=== PATIENT | male | born 1995 | race Caucasian/White ===

== ENCOUNTER → 2020-10-25 01:15 | Outpatient (CLI) | payer OTHER, SELFPAY ==
[2020-10-25 17:52] LABS: SARS-CoV-2 RNA PCR Negative
== END ==
PROVIDERS: Visit Provider Otolaryngology
DX: Z01.812 Encounter for preprocedural laboratory examination (principal); Z20.822 Contact with and (suspected) exposure to COVID-19
CPT/HCPCS: C9803; U0003; U0005

== ENCOUNTER 2020-10-28 00:24 | Day surgery (SDC) | payer OTHER, SELFPAY ==
[2020-10-22 14:11] VITALS: BMI 40.6
--- NOTE | 2020-10-27 13:02 | PM.IMHP ---
H&P: HPI History of Present Illness Date/Time: 10/27/20 13:02 patient presents for planned surgical procedures. No change in medications medical history or symptoms. Chief Complaint: Septal deviation inferior turbinate hypertrophy nasal obstruction nasal congestion Review of Systems Constitutional: Constitutional: Denies fatigue, Denies fever(s) and Denies lethargy Eyes: Eyes: Denies blurry vision and Denies change in vision ENT: Reports as per HPI Cardiovascular: Cardiovascular: Denies chest pain Respiratory: Respiratory: Denies cough Endocrine: Endocrine: Denies fatigue Hematologic/Lymphatic: Hematologic/Lymphatic: Denies easy bleeding, Denies easy bruising and Denies lymphadenopathy Allergic/Immunologic: Allergic/Immunologic: Denies seasonal rhinorrhea [facility] Family History Family History Father Alcoholism Social History Social History Smoking packs per day: 1 Smoking cigarettes per day: 20.0 Years smoked: 2 Smoking pack-years: 2.00 Smoking status: Former smoker Tobacco type: cigarettes and smokeless tobacco Smokeless tobacco user: other Second hand tobacco smoke exposure: Yes (occasionally mom smokes around patient) Smoking end date: 10/14/20 Additional smoking assessment comments: Only uses smokeless tobacco products currently Alcohol intake: never Substance use: current Substance use type: marijuana Other substance usage details: daily Spiritual care concerns: No Meds Home Medications and Allergies Home Medications Medication Instructions Recorded Confirmed Type azelastine 137 mcg (0.1 %) nasal 1 spray INTRANASAL Q12H #30 ml 09/09/20 10/22/20 Rx spray aerosol fluticasone propionate 50 2 spray INTRANASAL BID #16 ml 09/09/20 10/22/20 Rx mcg/actuation nasal spray,suspension Allergies Allergy/AdvReac Type Severity Reaction Status Date / Time Sulfa (Sulfonamide Allergy Intermediate Hives Verified 10/22/20 14:07 Antibiotics) Exam Const: General: cooperative, healthy appearing, comfortable, well developed and alert HENMT: Head: normal to inspection, normocephalic and atraumatic Ears: hearing grossly normal bilaterally, external ears normal, TM's normal bilaterally and EAC's normal General nose exam: Normal external nose present, Normal nares present, mucous membranes and turbinates abnormal, abnormal septum and Other nasal findings present ( Septal deviation inferior turbinate hypertrophy) Face and sinus: normal facial exam Mouth: Yes Normal oral and palatal mucosa present, Yes lip normal, Yes tongue normal, Yes oropharynx normal and Yes moist mucous membranes Teeth and gingiva: dentition normal and gingiva normal Throat: posterior oropharynx normal, tonsils normal and uvula midline Eyes: General: appearance normal, both eyes and all related structures Periorbital: periorbital findings normal Eyelids: eyelids normal Conjunctivae: conjunctivae normal Sclera: sclerae normal Neck: Neck: normal visual inspection, full ROM and no lymphadenopathy Thyroid: thyroid normal Lymphatic: no lymphadenopathy noted Resp: Effort & Inspection: normal respiratory effort and able to speak in complete sentences Cardio: Jugular venous distension: no JVD Neuro: Cranial nerves: Yes CN's II-XII intact bilaterally Assessment and Plan Assessment and plan (1) Hypertrophy of both inferior nasal turbinates: Code(s): J34.3 - Hypertrophy of nasal turbinates Status: Acute Assessment and Plan: plan is for the OR for endoscopic assisted septoplasty inferior turbinate reduction with outfracture. Total operative time 1:00 hour. Risks were discussed including brain damage CSF leak blindness change in vision septal perforation need for further procedures and postoperative pain postoperative bleeding need for splints need for postoperative
[2020-10-28] VITALS (8 sets, daily range): BP systolic 97–161; BP diastolic 56–90; PULSE 74–98; RESP 11–16; TEMP 36.4–36.7; O2SAT 92–99
--- NOTE | 2020-10-28 07:09 | WPDHPUPDATE1 ---
History and Physical Update Update Date/Time: 10/28/20 07:09 History and Physical has been reviewed, including an updated exam of the patient. There are NO changes in the patient's condition. Risks, benefits, and alternatives have been discussed and questions answered. Patient agrees to proceed with procedure.
[2020-10-28] MEDS: LACTATED RINGERS 1,000 ML 30 ML IV CONT ×2 (08:05→11:15)
[2020-10-28] MEDS: ACETAMINOPHEN 500 MG TABLET 1000 MG PO (08:09)
--- NOTE | 2020-10-28 09:06 | WPDANESEPPF ---
Anes - Initial Pre Proc Eval Procedure: Operation Date: 10/28/20 09:45 Proposed Procedures p Endoscopic Septoplasty, - Wesley Olmstead MD s Bilateral Inferior Turbinectomy - Wesley Olmstead MD Date/Time: 10/28/20 09:06 Surgeon: Wesley Olmstead MD Pre Op Diagnosis: septal deviation, turbinate hypertrophy Patient Data Age: 25 Gender: M Height: 1.83 m Weight: 139.7 kg Last Vital Signs Temp 36.4 C L 10/28/20 08:30 Pulse 77 10/28/20 08:30 Resp 16 10/28/20 08:30 BP 151/90 H 10/28/20 08:30 Pulse Ox 99 10/28/20 08:30 Allergies Allergy/AdvReac Type Severity Reaction Status Date / Time Sulfa (Sulfonamide Allergy Intermediate Hives Verified 10/28/20 08:28 Antibiotics) Home Medications Medication Instructions Recorded Confirmed Type azelastine 137 mcg (0.1 %) nasal 1 spray INTRANASAL Q12H #30 ml 09/09/20 10/28/20 Rx spray aerosol fluticasone propionate 50 2 spray INTRANASAL BID #16 ml 09/09/20 10/28/20 Rx mcg/actuation nasal spray,suspension Patient hx anesthesia problems: none Family hx anesthesia problems: none PMFSH Past Medical History Medical History (Updated 10/28/20 @ 09:07 by Slade Marrero MD) Morbid obesity Surgical History Surgical History (Updated 10/28/20 @ 09:07 by Slade Marrero MD) H/O hernia repair Family History Family History Father Alcoholism Social History Social History Smoking packs per day: 1 Smoking cigarettes per day: 20.0 Years smoked: 2 Smoking pack-years: 2.00 Smoking status: Former smoker Tobacco type: cigarettes and smokeless tobacco Smokeless tobacco user: other Second hand tobacco smoke exposure: Yes (occasionally mom smokes around patient) Smoking end date: 10/14/20 Additional smoking assessment comments: Only uses smokeless tobacco products currently Alcohol intake: never Substance use: current Substance use type: marijuana Other substance usage details: daily Living arrangements: with family Spiritual care concerns: No Anes - Eval Final PreProcedure Day of Procedure 10/28/20 09:06 Patient weight: morbidly obese Heart: regular rate and rhythm Lungs: clear to auscultation Airway: Mallampati scale class II Neurological: alert and oriented Last oral intake: >/= 8 hours ASA classification: III Emergent: no Anesthetic plan: proceed Anesthesia type and monitoring: general ETT and standard monitoring Informed Consent: The patient's anesthetic plan and its attendant risks and benefits were discussed with the patient/family/POA. Questions were solicited and answers provided to the satisfaction of the patient/family/POA.
[2020-10-28] MEDS: ceFAZolin 3 GM/D5W 100 ML 100 ML IVPB (09:50)
[2020-10-28] MEDS: LIDO 1%/EPINEPHRINE/PF 1:200,000 30 ML VIAL XX (10:13)
[2020-10-28] MEDS: OXYMETAZOLINE HCL 0.05% NAS 15 ML BTL (*BKC) 1 SPRAY NASAL (10:14)
[2020-10-28] MEDS: fentaNYL CITRATE INJ (*CRX) 100 MCG/2 ML VIAL 25 MCG IV PUSH ×8 (11:27→12:40)
--- NOTE | 2020-10-28 11:49 | W.PM.PROC2 ---
Procedure Note - Detailed Date of Procedure 10/28/20 Pre-op Diagnosis septal deviation, turbinate hypertrophy Post-op Diagnosis same Procedure Performed 1. Endoscopic assisted septoplasty 2. Submucosal resection bilateral inferior turbinates with outfracture Surgeon Wesley Olmstead MD Lens Grinder none Indications see above Findings Leftward deviated septum, bilateral inferior turbinate hypertrophy Description of Procedure the patient was correctly identified and consent was verified in the preoperative holding area. The patient was then brought to the operating room and a time-out was performed. General anesthesia was induced and endotracheal tube was secured the patient's airway and taped to the left lower lip. Afrin-soaked pledgets were placed and allowed to sit for 5 minutes and then removed. The patient was then prepped and draped for the aforementioned procedures. The 0 degree endoscope was utilized to perform the entire procedure. 15 cc of 1% lidocaine with 1 100,000 parts epinephrine was injected in the sub mucosal plane on the bilateral nasal septum as well as anterior portions of the inferior turbinates. Fifteen blade was utilized to perform [place] type incision on the anterior left nasal septum. A 7 Indonesian suction was utilized to dissect a mucoperichondrial flap on the left. Caudal was then utilized to cross to the right side. Right-sided mucoperichondrial flap was then elevated. Deviated nasal septum was removed with combination of endoscopic scissors Jeff Krishnan forceps and Mandi forceps as well as osteotome. The septum was very straight following the procedure. This was closed with 3 interrupted 5 0 fast gut sutures anteriorly on the left. The left inferior turbinate was then entered anteriorly and debrided in the submucosal plane using microdebrider with 2 mm inferior turbinate blade. It was then outfractured using a Mobile elevator. Redundant mulberry tip was then debrided with microdebrider and cauterized with suction Bovie electrocautery at a setting of 15 the exact same procedure was performed on the right inferior turbinate. Bleeding was minimal and hemostasis without excellent following the procedure. Vazquez splints were then placed after the nasal passages were suctioned bilaterally, the Vazquez splints were then sutured anteriorly using a 3-0 nylon suture. Patient was cleaned. Total blood loss approximately 5 cc. I performed all dictated portions of the procedure. Care the patient was turned over to Anesthesiology. There were no immediate complications. Implants Vazquez splints Estimated Blood Loss 5 Drains No Packing No Complications No immediate complications Condition stable Disposition PACU
[2020-10-28] MEDS: oxyCODONE HCL (*CRX) 5 MG TAB IR PO (12:30)
== END 2020-10-28 13:10 | disposition home or self-care (01) ==
PROVIDERS: Visit Provider Otolaryngology
PROC: (CPT 30520; principal; 2020-10-28 09:45)
PROC: (CPT 30140; 2020-10-28 09:45)
DX: J34.2 Deviated nasal septum (principal); J34.3 Hypertrophy of nasal turbinates; F12.90 Cannabis use, unspecified, uncomplicated; F17.220 Nicotine dependence, chewing tobacco, uncomplicated; E66.01 Morbid (severe) obesity due to excess calories; Z68.41 Body mass index [BMI] 40.0-44.9, adult
CPT/HCPCS: 30140; 30520; A9270; J0330; J0690; J1100; J2250; J2405; J2704; J3010; J7120

== ENCOUNTER 2021-02-24 12:31 | Emergency (ER) | payer OTHER, SELFPAY ==
[2021-02-24 13:23] VITALS: BP 150/86; PULSE 85; RESP 16; TEMP 36; O2SAT 98
--- NOTE | 2021-02-24 14:07 | ED.URI ---
HPI - URI/Sore Throat General Chief Complaint: Upper Respiratory Infection Stated Complaint: CONGESTION Time Seen by Provider: 02/24/21 14:08 Source: patient and RN notes reviewed Mode of arrival: ambulatory Limitations: no limitations History of Present Illness HPI Narrative: 25-year-old male with history of asthma presents with concern for 6-day history of wheezing, cough, chest congestion. He reports a feeling of not being able to take a full breath. Reports he has not had an albuterol inhaler for more than a year, he usually needs it when he is sick. He reports he gets tested weekly at work for Covid, he had a negative test last week and was tested again yesterday. He denies any known Covid exposure. He denies body aches, chills, sweats, fever. MD elicited complaint: cough and sore throat Related Data Allergies Allergy/AdvReac Type Severity Reaction Status Date / Time Sulfa (Sulfonamide Allergy Intermediate Hives Verified 11/18/20 13:10 Antibiotics) Review of Systems Review of Systems: CONSTITUTIONAL: Denies malaise, chills, sweats, or fever. EYES: Denies visual changes, redness, or discharge. ENT: Reports rhinorrhea, congestion. Sinus pain, otalgia and sore throat. CARDIOVASCULAR: Denies chest pain, palpitations, or edema. RESPIRATORY: Reports cough, chest congestion. Denies dyspnea. GASTROINTESTINAL: Denies abdominal pain, nausea, vomiting, diarrhea SKIN: Denies rash or itching. MUSCULOSKELETAL: Denies myalgia. NEUROLOGIC: Denies headache. All systems reviewed & are unremarkable except as noted in HPI and below PMFSH Past Medical History Medical History Morbid obesity Surgical History Surgical History H/O hernia repair Family History Family History Father Alcoholism Social History Social History Smoking packs per day: 1 Smoking cigarettes per day: 20.0 Years smoked: 2 Smoking pack-years: 2.00 Smoking status: Former smoker Tobacco type: cigarettes and smokeless tobacco Smokeless tobacco user: other Second hand tobacco smoke exposure: Yes (occasionally mom smokes around patient) Smoking end date: 10/14/20 Additional smoking assessment comments: Only uses smokeless tobacco products currently Alcohol intake: never Substance use: current Substance use type: marijuana Other substance usage details: daily Spiritual care concerns: No Comments At time of signature, agree with nursing past medical, surgical, social and family history. There is no relevant family history pertinent to the presenting complaint Exam Narrative: GENERAL: Well-appearing, well-nourished, and in no acute distress. HEAD: Normocephalic EYES: PERRLA, conjunctivae clear ENT: Nares clear, turbinates edematous and erythematous, clear discharge. Mucous membranes moist. TM pearly palmer with dull light reflex bilaterally; no tragal tenderness. Oropharynx not erythematous without lesions. Tonsils not enlarged and without exudate, no drooling, no hoarseness, no trismus, uvula midline. NECK: Supple. No lymphadenopathy CHEST: Clear to auscultation, breath sounds equal. No wheezing, rhonchi, rales, or stridor. No respiratory distress, speaks in full sentences. HEART: Regular rate and rhythm. No murmur heard. SKIN: Warm, dry, no rash. NEURO: Alert and oriented x3. PSYCH: Normal mood and affect Course Course Emergency Course: Patient is aware of diagnosis, understands and agrees to treatment plan. Anticipatory guidance given. Patient agrees to follow-up as directed and is aware of reasons to seek care at the emergency department. Portions of this record may have been created with voice recognition software Vital Signs Vital signs: Vital Signs Temperature 96.8 F L 02/24/21 13:23 Pulse Rate 85 02/24/21 13:23
== END 2021-02-24 14:17 | disposition home or self-care (01) ==
PROVIDERS: Emergency Provider Nurse Practitioner
DX: J06.9 Acute upper respiratory infection, unspecified (principal); J45.909 Unspecified asthma, uncomplicated; Z87.891 Personal history of nicotine dependence
CPT/HCPCS: 99213; G0463

== ENCOUNTER 2021-04-09 12:14 | Emergency (ER) | payer OTHER, SELFPAY ==
--- NOTE | 2021-04-09 12:19 | ED.URI ---
HPI - URI/Sore Throat General Chief Complaint: Shortness of Breath/Dyspnea Stated Complaint: Shortness of Breath Time Seen by Provider: 04/09/21 12:19 Source: patient and RN notes reviewed Mode of arrival: ambulatory Limitations: no limitations History of Present Illness HPI Narrative: 25-year-old male presents to the [facility] with complaints of shortness of breath since yesterday. Has a history of asthma. Went to [facility] and was tested for Covid 2 hours ago. Patient is afebrile. Nontoxic in appearance. Related Data Allergies Allergy/AdvReac Type Severity Reaction Status Date / Time Sulfa (Sulfonamide Allergy Intermediate Hives Verified 04/09/21 12:28 Antibiotics) Review of Systems Review of Systems: All systems reviewed & are unremarkable except as noted in HPI and below Constitutional: Constitutional: Reports no additional constitutional complaints, Denies chills, Denies fever(s) and Denies headache(s) Eyes: Eyes: Reports no additional eye complaints ENT: Reports as per HPI, Denies vertigo, Denies dizziness, Denies headache(s), Denies nasal congestion and Denies sore throat Cardiovascular: Cardiovascular: Reports no additional cardiovascular complaints, Denies chest pain, Denies syncope, Denies rapid heart rate and Denies dyspnea Respiratory: Respiratory: Reports as per HPI, Reports cough, Reports dyspnea and Denies wheezing Gastrointestinal: Gastrointestinal: Reports no additional gastrointestinal complaints, Denies abdominal pain, Denies diarrhea, Denies nausea and Denies vomiting Musculoskeletal: Musculoskeletal: Reports no additional musculoskeletal complaints and Denies numbness Integumentary/Breasts: Skin/Breast: Reports system reviewed and no additional complaints, except as docu Neurologic: Reports system reviewed and no additional complaints, except as documented, Denies vertigo, Denies dizziness, Denies syncope, Denies headache(s), Denies focal weakness and Denies numbness Psychiatric: Psychiatric: Reports no additional psychiatric complaints Allergic/Immunologic: Allergic/Immunologic: Reports no additional allergic/immunologic complaints and Denies wheezing PMFSH Past Medical History Medical History Morbid obesity Surgical History Surgical History H/O hernia repair Family History Family History Father Alcoholism Social History Social History Smoking packs per day: 1 Smoking cigarettes per day: 20.0 Years smoked: 2 Smoking pack-years: 2.00 Smoking status: Former smoker Tobacco type: cigarettes and smokeless tobacco Smokeless tobacco user: other Second hand tobacco smoke exposure: Yes (occasionally mom smokes around patient) Smoking end date: 10/14/20 Additional smoking assessment comments: Only uses smokeless tobacco products currently Alcohol intake: never Substance use: current Substance use type: marijuana Other substance usage details: daily Spiritual care concerns: No Comments At the time of my signature, I reviewed and agree with the nursing past medical, surgical, social, and family history. There is no relevant family history pertinent to the patient complaint. Exam Const: General: cooperative, healthy appearing, no acute distress, well developed and alert Nutritional Appearance: well nourished and obese Orientation/consciousness: patient oriented x3 Limitations: no limitations HENMT: Head: normal to inspection Ears: external ears normal, TM's normal bilaterally and EAC's normal Eyes: Conjunctivae: conjunctivae normal Pupils: Equal, round and reactive pupils present Neck: Neck: normal visual inspection, no lymphadenopathy and no meningeal signs Chest: Chest palpation & inspection: normal inspection of the chest Resp: Effort & Inspec
[2021-04-09 12:24] VITALS: BP 138/82; PULSE 91; RESP 18; TEMP 36.5; O2SAT 98
== END 2021-04-09 12:39 | disposition home or self-care (01) ==
PROVIDERS: Emergency Provider Nurse Practitioner
DX: J45.909 Unspecified asthma, uncomplicated (principal); F17.290 Nicotine dependence, other tobacco product, uncomplicated; E66.01 Morbid (severe) obesity due to excess calories; Z68.41 Body mass index [BMI] 40.0-44.9, adult
CPT/HCPCS: 99213; G0463

== ENCOUNTER 2021-07-01 16:21 | Emergency (ER) | payer OTHER, SELFPAY ==
[2021-07-01 16:29] VITALS: BP 139/80; PULSE 80; RESP 16; TEMP 36.4; O2SAT 99
[2021-07-01 16:32] VITALS: BP 139/80; PULSE 80; RESP 16; TEMP 36.4; O2SAT 99
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
== END 2021-07-01 17:02 | disposition home or self-care (01) ==
PROVIDERS: Emergency Provider Nurse Practitioner Family
DX: T22.111A Burn of first degree of right forearm, initial encounter (principal); X15.0XXA Contact with hot stove (kitchen), initial encounter; Y93.G3 Activity, cooking and baking; F17.290 Nicotine dependence, other tobacco product, uncomplicated; F12.90 Cannabis use, unspecified, uncomplicated; E66.01 Morbid (severe) obesity due to excess calories; Z68.41 Body mass index [BMI] 40.0-44.9, adult
CPT/HCPCS: 99213; G0463

== ENCOUNTER 2021-12-19 09:28 | Emergency (ER) | payer OTHER, SELFPAY ==
[2021-12-19 09:38] VITALS: BP 140/92; PULSE 81; RESP 16; O2SAT 100
--- NOTE | 2021-12-19 09:46 | ED.URI ---
HPI - URI/Sore Throat General Chief Complaint: Upper Respiratory Infection Stated Complaint: uri Time Seen by Provider: 12/19/21 09:46 Source: patient and RN notes reviewed Mode of arrival: ambulatory Limitations: no limitations History of Present Illness HPI Narrative: 46 female present for complaint of sinus pressure, congestion, and both ears feel muffled for about 5 days. Endorses left ear pain, and states nasal drainage is green in color. He states this is worsening his asthma and is requesting albuterol inhaler refill. He has been taking NyQuil and Benadryl for symptoms. He is not vaccinated for flu. Denies chest pain, shortness of breath, wheezing, vomiting, fever or chills. Took negative Covid test at home today. MD elicited complaint: cough Related Data Allergies Allergy/AdvReac Type Severity Reaction Status Date / Time Sulfa (Sulfonamide Allergy Intermediate Hives Verified 12/19/21 09:35 Antibiotics) Review of Systems Review of Systems: CONSTITUTIONAL: denies malaise, denies chills, sweats, fever EYES: Denies visual changes, redness, or discharge ENT: Reports rhinorrhea, congestion ,denies sinus pain, otalgia CARDIOVASCULAR: Denies chest pain, palpitations, edema RESPIRATORY: Reports cough, post nasal drainage. Denies dyspnea GASTROINTESTINAL: Denies abdominal pain, nausea, vomiting, diarrhea MUSCULOSKELETAL: denies myalgia NEUROLOGIC: Denies headache PMFSH Past Medical History Medical History Morbid obesity Surgical History Surgical History H/O hernia repair Family History Family History Father Alcoholism Social History Social History Smoking packs per day: 1 Smoking cigarettes per day: 20.0 Years smoked: 2 Smoking pack-years: 2.00 Smoking status: Former smoker Tobacco type: cigarettes and smokeless tobacco Smokeless tobacco user: other Second hand tobacco smoke exposure: Yes (occasionally mom smokes around patient) Smoking end date: 10/14/20 Additional smoking assessment comments: Only uses smokeless tobacco products currently Alcohol intake: never Substance use: current Substance use type: marijuana Other substance usage details: daily Spiritual care concerns: No Exam Narrative: GENERAL: well-appearing EYES: PERRLA, conjunctivae clear ENT: Mucous membranes moist. Right TM pearly palmer with dull light reflex; Left TM erythematous, bulging with red canal; no tragal tenderness. Oropharynx erythematous without lesions or exudate, no drooling, no hoarseness, no trismus, uvula midline. NECK: Supple. No lymphadenopathy CHEST: Clear to auscultation, breath sounds equal. No wheezing, rhonchi, rales, or stridor. No respiratory distress, speaks in full sentences. HEART: Regular rate and rhythm. No murmur heard. SKIN: Warm, dry, no rash. NEURO: Alert and oriented x3. Course Course Emergency Course: Patient is aware of diagnosis, understands and agrees to treatment plan. Anticipatory guidance given. Patient agrees to follow-up as directed and is aware of reasons to seek care at the emergency department. Portions of this record may have been created with voice recognition software Level of Care: Express Care Visit Vital Signs Vital signs: Vital Signs Pulse Rate 81 12/19/21 09:38 Respiratory Rate 16 12/19/21 09:38 Blood Pressure 140/92 H 12/19/21 09:38 Pulse Oximetry 100 12/19/21 09:38 Oxygen Delivery Room Air 12/19/21 09:38 Pulse Rate 81 12/19/21 09:38 Respiratory Rate 16 12/19/21 09:38 Blood Pressure 140/92 H 12/19/21 09:38 Pulse Oximetry 100 12/19/21 09:38 Oxygen Delivery Room Air 12/19/21 09:38 reviewed MDM - URI/Sore Throat MDM Narrative Medical decision making narrative: Advised suppo
== END 2021-12-19 10:06 | disposition home or self-care (01) ==
PROVIDERS: Emergency Provider Nurse Practitioner Family
DX: H66.002 Acute suppurative otitis media without spontaneous rupture of ear drum, left ear (principal); Z87.891 Personal history of nicotine dependence; E66.01 Morbid (severe) obesity due to excess calories; Z68.35 Body mass index [BMI] 35.0-35.9, adult
CPT/HCPCS: 99213; G0463

== ENCOUNTER 2022-05-23 18:21 | Emergency (ER) | payer OTHER, SELFPAY ==
--- NOTE | 2022-05-23 18:27 | ED.URI ---
HPI - URI/Sore Throat General Chief Complaint: Upper Respiratory Infection Stated Complaint: sob Time Seen by Provider: 05/23/22 18:27 Source: patient Mode of arrival: ambulatory Limitations: no limitations History of Present Illness HPI Narrative: 26-year-old male with history of asthma presents with complaint of shortness of breath with exertion, chest tightness when trying to take a deep breath. Using inhaler and reports not helping. Patient had COVID 2 weeks ago. States all symptoms resolved other than the cough. Thinks that COVID is exacerbating his asthma. Is concerned that he may need prednisone. Patient alert and talkative. no respiratory distress noted. All systems reviewed and negative except as noted above. Related Data Home Medications Medication Instructions Recorded Confirmed albuterol sulfate 90 mcg/actuation inhalation 05/23/22 aerosol inhaler Allergies Allergy/AdvReac Type Severity Reaction Status Date / Time Sulfa (Sulfonamide Allergy Intermediate Hives Verified 05/23/22 18:24 Antibiotics) Review of Systems Review of Systems: CONSTITUTIONAL: Denies fever, chills, or sweats. EYES: Denies visual changes, redness, or discharge. ENT: Denies rhinorrhea, congestion, sore throat, or otalgia. CARDIOVASCULAR: Denies chest pain, palpitations, or edema. RESPIRATORY: Reports cough and dyspnea on exertion. GASTROINTESTINAL: Denies abdominal pain, nausea, vomiting, or diarrhea. GENITOURINARY: Denies dysuria or hematuria. SKIN: Denies rash or itching. MUSCULOSKELETAL: Denies back pain, joint pain, or myalgia. NEUROLOGIC: Denies headache, numbness, or weakness. PSYCHIATRIC: Denies anxiety or depression. All other systems reviewed are negative, except as documented in HPI. [facility] Past Medical History Medical History Morbid obesity Surgical History Surgical History H/O hernia repair Family History Family History Father Alcoholism Social History Social History Smoking packs per day: 1 Smoking cigarettes per day: 20.0 Years smoked: 2 Smoking pack-years: 2.00 Smoking status: Former smoker Tobacco type: cigarettes and smokeless tobacco Smokeless tobacco user: other Second hand tobacco smoke exposure: Yes (occasionally mom smokes around patient) Smoking end date: 10/14/20 Additional smoking assessment comments: Only uses smokeless tobacco products currently Alcohol intake: never Substance use: current Substance use type: marijuana Other substance usage details: daily Living arrangements: with family Spiritual care concerns: No Comments At time of signature, agree with nursing past medical, surgical, social and family history. There is no relevant family history pertinent to the presenting complaint. Exam Narrative: GENERAL: This is a well-nourished, well-developed patient, in no apparent distress. HEAD: normocephalic, atraumatic. EYES: PERRL. Sclera clear/white. Vision is grossly intact. EARS: External ears normal, auditory canals clear and without drainage, TMs normal without perforation. Hearing grossly intact. NOSE: External nose normal with no obvious nasal discharge, nares without redness, no rhinorrhea. THROAT: Mucous membranes moist, posterior pharynx clear. NECK: Neck supple, non-tender without lymphadenopathy, masses or thyromegaly. CARDIOVASCULAR: Regular rate and rhythm without murmurs, gallops, or rubs. RESPIRATORY: expiratory wheezing throughout all lung espinoza. SKIN: warm, Dry, intact with no suspicious lesions or rash, good texture and turgor. NEURO: awake, alert, and oriented to person, place and time. There were no obvious focal neurologic abnormalities. EXTREMITIES: No joint tenderness, effusion, or edema noted.
[2022-05-23 18:28] VITALS: BP 144/92; PULSE 95; RESP 16; TEMP 36.8; O2SAT 98
[2022-05-23] MEDS: predniSONE 20 MG TABLET 40 MG PO (18:45)
[2022-05-23] MEDS: ALBUTEROL SULFATE NEB 2.5 MG/3 ML INH INHALATION (18:46)
[2022-05-23] MEDS: IPRATROPIUM BR 0.02% INH SOLN 0.5 MG/2.5 ML VIAL INHALATION (18:46)
== END 2022-05-23 19:15 | disposition home or self-care (01) ==
PROVIDERS: Emergency Provider Nurse Practitioner Family
DX: J45.901 Unspecified asthma with (acute) exacerbation (principal); Z87.891 Personal history of nicotine dependence
CPT/HCPCS: 94640; 99213; G0463; J7512

== ENCOUNTER 2022-06-03 15:02 | Emergency (ER) | payer OTHER, SELFPAY ==
--- NOTE | 2022-06-03 15:29 | PC.NURSE ---
pt to intake desk and states he does not want to wait long and is going to a different hospital. pt ambulated out of ED doors.
== END 2022-06-03 16:50 | disposition left against medical advice (07) ==
LOC: ANHED 15:40
DX: Z53.21 Procedure and treatment not carried out due to patient leaving prior to being seen by health care provider (principal)
CPT/HCPCS: 99199

== ENCOUNTER 2022-06-10 07:30 | Emergency (ER) | payer OTHER, SELFPAY ==
--- NOTE | ~2022-06-10 | XR_ITS ---
Clinical Indication: Shortness of breath PA and lateral views of the chest: Comparison: 01/03/2019 Findings: The lungs are clear, without evidence of focal consolidation or pleural effusion. Cardiome diastinal silhouette is within normal limits. Bones and soft tissues are unremarkable. Impression: Normal chest. Reviewed, dictated and finalized at [facility]. Impression: Normal chest.
[2022-06-10 07:34] VITALS: BP 172/92; PULSE 100; RESP 18; TEMP 37; O2SAT 95
[2022-06-10] MEDS: IPRATROPIUM BR 0.02% INH SOLN 0.5 MG/2.5 ML VIAL INHALATION (07:51)
[2022-06-10 07:52] VITALS: PULSE 95; RESP 16
[2022-06-10 08:04] VITALS: PULSE 110; RESP 16
--- NOTE | 2022-06-10 08:43 | ED.ASTHMA ---
HPI - Asthma General Chief Complaint: Asthma Stated Complaint: trouble breathing Time Seen by Provider: 06/10/22 07:37 History of Present Illness HPI Narrative: Patient is a 26-year-old male who presents ER with shortness of breath. Worsening over last couple days. Was diagnosed with COVID a couple weeks ago. Has been having breathing difficulty since then. She does not currently have an albuterol inhaler. 2 weeks ago he was on 5 days of prednisone with only mild improvement. No fevers or chills or sweats. Reports his doctor wanted chest x-ray actually does not have pneumonia. Patient feels some tightness in the back but no chest pain. No fevers or chills or sweats. Related Data Allergies Allergy/AdvReac Type Severity Reaction Status Date / Time Sulfa (Sulfonamide Allergy Intermediate Hives Verified 06/10/22 07:37 Antibiotics) Review of Systems Constitutional: Constitutional: Denies chills, Denies fatigue and Denies fever(s) ENT: Denies nasal congestion and Denies sore throat Cardiovascular: Cardiovascular: Denies chest pain, Denies rapid heart rate and Denies radiating jaw, neck or arm pain Respiratory: Respiratory: Reports cough, Reports dyspnea and Reports wheezing Gastrointestinal: Gastrointestinal: Denies abdominal pain, Denies nausea and Denies vomiting PMF Past Medical History Medical History (Updated 06/10/22 @ 08:49 by Jaylan Lewis MD) Anxiety Asthma Morbid obesity Nasal septal deviation Surgical History Surgical History H/O hernia repair Family History Family History Father Alcoholism Social History Social History Smoking packs per day: 1 Smoking cigarettes per day: 20.0 Years smoked: 2 Smoking pack-years: 2.00 Smoking status: Former smoker Tobacco type: cigarettes and smokeless tobacco Smokeless tobacco user: other Second hand tobacco smoke exposure: Yes (occasionally mom smokes around patient) Smoking end date: 10/14/20 Additional smoking assessment comments: Only uses smokeless tobacco products currently Alcohol intake: never Substance use: current Substance use type: marijuana Other substance usage details: daily Living arrangements: with family Spiritual care concerns: No Exam Narrative: GENERAL: Well-appearing, well-nourished, and in no acute distress. HEAD: Normocephalic, atraumatic. ENT: Mucous membranes moist. CHEST: Faint wheezing bilateral mid and lower lung zones. No respiratory distress. HEART: Regular rate and rhythm. Normal peripheral pulses. EXTREMITIES: Normal range of motion. No edema. NEURO: Alert and oriented x3. PSYCH: Normal mood and affect. Course Course Emergency Course: Wheezing resolved after nebulizer treatment. X-ray without pneumonia. Discharged with steroids and albuterol. Patient agreeable with plan. Vital Signs Vital signs: Vital Signs Temperature 98.6 F 06/10/22 07:34 Pulse Rate 100 06/10/22 07:34 Respiratory Rate 18 06/10/22 07:34 Blood Pressure 172/92 H 06/10/22 07:34 Pulse Oximetry 95 06/10/22 07:34 Temperature 98.6 F 06/10/22 07:34 Pulse Rate 110 H 06/10/22 08:04 Respiratory Rate 16 06/10/22 08:04 Blood Pressure 172/92 H 06/10/22 07:34 Pulse Oximetry 95 06/10/22 07:34 MDM - Asthma Imaging Data Radiologist's impression: ITS Impressions Chest X-Ray 06/10/22 08:34 Impression: Normal chest. Discharge Plan Discharge Clinical Impression: Asthma exacerbation Patient Disposition: Home, Self-Care Condition: Stable Instructions: Asthma (ED) Additional Instructions: Return the ER if you have worsening shortness of breath, you cannot keep down food or water, you lose consciousness, you have additional concerns. Prescriptions: New prednisone 5
[2022-06-10 08:50] VITALS: O2SAT 99
[2022-06-10 08:55] VITALS: BP 168/77; PULSE 80; RESP 16; O2SAT 100
== END 2022-06-10 08:56 | disposition home or self-care (01) ==
PROVIDERS: Emergency Provider Emergency Medicine; PCP Emergency Medicine
DX: J45.901 Unspecified asthma with (acute) exacerbation (principal); E66.01 Morbid (severe) obesity due to excess calories; Z68.41 Body mass index [BMI] 40.0-44.9, adult; Z86.16 Personal history of COVID-19; Z87.891 Personal history of nicotine dependence
CPT/HCPCS: 71046; 94640; 99283

== ENCOUNTER 2023-02-08 14:26 | Emergency (ER) | payer OTHER, SELFPAY ==
[2023-02-08 14:38] VITALS: BP 142/90; PULSE 91; RESP 16; TEMP 37.1; O2SAT 97
--- NOTE | 2023-02-08 14:39 | ED.URI ---
HPI - URI/Sore Throat General Chief Complaint: Upper Respiratory Infection Stated Complaint: wheezing Time Seen by Provider: 02/08/23 15:00 Source: patient and RN notes reviewed Mode of arrival: ambulatory Limitations: no limitations History of Present Illness HPI Narrative: 27-year-old male presents concern for cough and wheezing for 1 week. Reports he started having a cold 1 week ago and he continues to have a cough with wheezing. He reports he takes a daily controller inhaler which he is almost out of and he uses his albuterol without relief. He requests refills on his controller medicine and albuterol. MD elicited complaint: cough Related Data Home Medications Medication Instructions Recorded Confirmed albuterol sulfate 90 mcg/actuation See Rx Instructions .Route .COMPLEX 02/08/23 02/08/23 aerosol inhaler budesonide-formoterol HFA 80 1 inh inhalation ONCE 02/08/23 02/08/23 mcg-4.5 mcg/actuation aerosol inhaler (Symbicort) Allergies Allergy/AdvReac Type Severity Reaction Status Date / Time Sulfa (Sulfonamide Allergy Intermediate Hives Verified 02/08/23 14:36 Antibiotics) Review of Systems Review of Systems: CONSTITUTIONAL: Denies malaise, chills, sweats, or fever. EYES: Denies visual changes, redness, or discharge. ENT: Denies rhinorrhea, congestion, sinus pain, otalgia and sore throat. CARDIOVASCULAR: Denies chest pain, palpitations, or edema. RESPIRATORY: Reports cough, wheezing, dyspnea. GASTROINTESTINAL: Denies abdominal pain, nausea, vomiting, diarrhea SKIN: Denies rash or itching. MUSCULOSKELETAL: Denies myalgia. NEUROLOGIC: Denies headache. All systems reviewed & are unremarkable except as noted in HPI and below PMFSH Past Medical History Medical History (Updated 02/08/23 @ 15:09 by Supriya Nunez NP) Anxiety Asthma Morbid obesity Nasal septal deviation Surgical History Surgical History H/O hernia repair Family History Family History Father Alcoholism Social History Social History Smoking packs per day: 1 Smoking cigarettes per day: 20.0 Years smoked: 2 Smoking pack-years: 2.00 Smoking status: Former smoker Tobacco type: cigarettes and smokeless tobacco Smokeless tobacco user: other Second hand tobacco smoke exposure: Yes (occasionally mom smokes around patient) Smoking end date: 10/14/20 Additional smoking assessment comments: Only uses smokeless tobacco products currently Alcohol intake: never Substance use: current Substance use type: marijuana Other substance usage details: daily Living arrangements: with family Spiritual care concerns: No Comments At time of signature, agree with nursing past medical, surgical, social and family history. There is no relevant family history pertinent to the presenting complaint Exam Narrative: GENERAL: Well-appearing, well-nourished, and in no acute distress. HEAD: Normocephalic EYES: PERRLA, conjunctivae clear ENT: Nares clear. Mucous membranes moist. TM pearly palmer with sharp light reflex bilaterally; no tragal tenderness. Oropharynx not erythematous without lesions. Tonsils not enlarged and without exudate, no drooling, no hoarseness, no trismus, uvula midline. NECK: Supple. No lymphadenopathy CHEST: Expiratory wheeze, breath sounds equal. No rhonchi, rales, or stridor. No respiratory distress, speaks in full sentences. HEART: Regular rate and rhythm. No murmur heard. SKIN: Warm, dry, no rash. NEURO: Alert and oriented x3. PSYCH: Normal mood and affect Course Course Emergency Course: Patient is aware of diagnosis, understands and agrees to treatment plan. Anticipatory guidance given. Patient agrees to follow-up as directed and is aware of reasons to seek care at the emergency department. Portions of this record ma
== END 2023-02-08 15:15 | disposition home or self-care (01) ==
PROVIDERS: Emergency Provider Nurse Practitioner; PCP Emergency Medicine
DX: J45.909 Unspecified asthma, uncomplicated (principal); Z87.891 Personal history of nicotine dependence; F12.90 Cannabis use, unspecified, uncomplicated; E66.01 Morbid (severe) obesity due to excess calories; Z68.41 Body mass index [BMI] 40.0-44.9, adult
CPT/HCPCS: 99213; G0463

== ENCOUNTER 2023-07-12 17:49 | Emergency (ER) | payer OTHER, SELFPAY ==
--- NOTE | ~2023-07-12 | US_ITS ---
EXAMINATION: US scrotum doppler DATE: 07/12/2023 18:28 INDICATION: L TESTICULAR PAIN AND SWELLING . TECHNIQUE: Grayscale and Doppler ultrasound images of the testes were obtained. COMPARISON: None. FINDINGS: The right testis measures 4.3 x 2.5 x 3.3 cm. The left testis measures 4.1 x 2.5 x 3.3 cm. No testicular mass. There is normal vascular flow to both testes. The right epididymis is normal with normal vascular flow. The left epididymis is normal with normal vascular flow. No hydrocele. No righ t varicocele. Moderate left varicocele. IMPRESSION: Moderate left varicocele. Otherwise normal scrotal ultrasound findings. Reviewed, dictated and finalized at location [facility].
[2023-07-12 17:59] VITALS: BP 180/100; PULSE 95; RESP 17; TEMP 36.5; O2SAT 99
--- NOTE | 2023-07-12 18:45 | ED.GENADULT ---
HPI - General Adult General Chief complaint: Urogenital-Male <Marlyn Ackerman July, Last Filed: 07/12/23 18:47> Stated complaint: L TESTICULAR PAIN AND SWELLING <Marlyn Ackerman July, Last Filed: 07/12/23 18:47> Time Seen by Provider: 07/12/23 18:45 <Marlyn Ackerman July, - Last Filed: 07/12/23 18:47> Focused HPI: Rashawn Castillo is a 27 y/o male who presents today with reports of having left testicular pain off and on for 2 weeks and got worse the past two days and he also reports of having some swelling behind. Denies abdominal pain/ reports nausea. Denies fevers/chills GENERAL: Well-appearing, well-nourished, and in no acute distress. HEAD: Normocephalic, atraumatic. CHEST: Clear to auscultation. ?No respiratory distress. HEART: Regular rate and rhythm.? NEURO: ?Alert and oriented x3. Patient screened in triage and initial orders placed.? ?Additional care and disposition to be based upon?diagnostic testing and treatment. <Marlyn Ackerman July, Last Filed: 07/12/23 18:47> Related Data Home medications: Home Medications Medication Instructions Recorded Confirmed albuterol sulfate 90 mcg/actuation See Rx Instructions .Route .COMPLEX 02/08/23 02/08/23 aerosol inhaler budesonide-formoterol HFA 80 1 inh inhalation ONCE 02/08/23 02/08/23 mcg-4.5 mcg/actuation aerosol inhaler (Symbicort) <Marlyn Ackerman July, Last Filed: 07/12/23 18:47> Allergies/adverse reactions: Allergies Allergy/AdvReac Type Severity Reaction Status Date / Time Sulfa (Sulfonamide Allergy Intermediate Hives Verified 07/12/23 20:23 Antibiotics) <Marlyn Ackerman July, Last Filed: 07/12/23 18:47> PMFSH Past Medical History Medical History: Medical History (Updated 07/12/23 @ 21:24 by Travis Gilliland MD) Anxiety Asthma Morbid obesity Nasal septal deviation <Marlyn Ackerman July, Last Filed: 07/12/23 18:47> Surgical History Surgical History: Surgical History H/O hernia repair <Marlyn JeremiahAwais Rollins APRN - Last Filed: 07/12/23 18:47> Family History Family History: Family History Father Alcoholism <Marlyn Rollins APRN - Last Filed: 07/12/23 18:47> Social History Social History: Social History Smoking packs per day: 1 Smoking cigarettes per day: 20.0 Years smoked: 2 Smoking pack-years: 2.00 Smoking status: Former smoker Tobacco type: cigarettes and smokeless tobacco Smokeless tobacco user: other Second hand tobacco smoke exposure: Yes (occasionally mom smokes around patient) Smoking end date: 10/14/20 Additional smoking assessment comments: Only uses smokeless tobacco products currently Alcohol intake: never Substance use: current Substance use type: marijuana Other substance usage details: daily Living arrangements: with family Spiritual care concerns: No <Marlyn Rollins APRN - Last Filed: 07/12/23 18:47> Exam Narrative: APPEARANCE: No apparent distress. Head: atraumatic. EYES: EOMI, NOSE: Atraumatic NECK: Trachea midline RESPIRATORY: No increased rate of breathing CARDIOVASCULAR: RRR, ABDOMINAL: Non-distended MUSCULOSKELETAl: No obvious deformities NEURO: Alert. Moving 4/4 extremities SKIN:: Warm, dry. Normal color PSYCHIATRIC: Normal affect Genital exam: Grossly normal external genitalia, right testicle normal with intact cremasteric reflex. Left testicle has tenderness to palpation over the posterior aspect. Cremasteric reflex intact. <Travis Gilliland MD - Last Filed: 07/12/23 21:27> Course Vital Signs Vital signs: Vital Signs Temperature 97.7 F 07/12/23 17:59 Pulse Rate 95 07/12/23 17:59 Respiratory Rate 17 07/12/23 17:59 Blood Pressure 180/100 H 07/12/23 17:59 Pulse Oximetry 99 07/12/23 17:59 Oxygen Delivery Room Air 07/12/23
[2023-07-12] MEDS: KETOROLAC 30 MG/ML VIAL (*BKC) IV PUSH (20:32)
[2023-07-12 20:41] LABS: Basophils Absolute Auto 0.1 K/mm3 (0.0-0.1); Basophils Percent Auto 0.7 % (0.2-1.2); Eosinophils Absolute Auto 0.3 K/mm3 (0-0.3); Hemoglobin 18.9 g/dL (14.0-18.0); Immature Granulocyte Absolute 0.05 K/mm3 (0.00-0.031); Immature Granulocyte Percent A 0.4 % (0-0.5); Lymphocytes Absolute Auto 2.69 K/mm3 (0.9-3.2); Mean Corpuscular HGB Conc 34.4 g/dl (32-36); Mean Corpuscular Hemoglobin 32.2 pg (26-34); Mean Corpuscular Volume 93.7 fl (80-100); Mean Platelet Volume 11.4 fl (7.4-10.4); Monocytes Absolute Auto 0.6 K/mm3 (0.1-0.6); Monocytes Percent Auto 5.1 % (2.6-8.5); Neutrophils Absolute Auto 8.5 K/mm3 (1.3-6.7); Neutrophils Percent Auto 69.8 % (45.5-73.1); Platelet Count Result 181 k/mm3 (150-375); Red Blood Count 5.87 M/mm3 (4.6-6.20); Red Cell Distribution Width 14.6 % (11.5-14.5); White Blood Count 12.2 K/mm3 (4.5-10.0)
[2023-07-12 20:42] LABS: Appearance Urine Clear (Clear); Bilirubin Urine Negative (Negative); Blood Urine Negative (Negative); Color Urine Yellow (Yellow); Glucose Urine UA Negative (Negative); Ketones Urine Negative (Negative); Leukocyte Esterase Ur Negative LEU/UL (Negative); Nitrate Urine Negative (Negative); Protein Urine Negative (Negative); Specific Grav Ur 1.016 (1.001-1.035)
[2023-07-12 20:53] LABS: Add Urine Microscopic? NO
[2023-07-12 21:05] LABS: Anion Gap 10 mmol/L (4-12); Blood Urea Nitrogen 12 mg/dL (9-20); Calcium 9.9 mg/dL (8.4-10.2); Carbon Dioxide 27 mmol/L (22-30); Chloride 102 mmol/L (98-107); Estimated CRCL calculation 128 ml/min; Estimated Glomerular Filt Rate > 60; Glucose 107 mg/dL (65-110); Potassium 4.2 mmol/L (3.4-5.0); Sodium 139 mmol/L (137-145)
[2023-07-12 21:08] VITALS: BP 159/101; PULSE 85; RESP 18; O2SAT 95
[2023-07-12] MEDS: AMOXICILLIN/CLAVULANATE K 875-125 MG TAB 1 TABLET PO (21:37)
== END 2023-07-12 21:36 | disposition home or self-care (01) ==
PROVIDERS: Nurse Practitioner Family; Emergency Provider Emergency Medicine; PCP Emergency Medicine
DX: J45.909 Unspecified asthma, uncomplicated (principal); E66.01 Morbid (severe) obesity due to excess calories; Z68.41 Body mass index [BMI] 40.0-44.9, adult; Z87.891 Personal history of nicotine dependence; N45.1 Epididymitis
CPT/HCPCS: 36415; 76870; 80048; 81003; 85025; 93976; 96374; 99284; A9270; J1885

== ENCOUNTER 2023-11-24 10:47 | Emergency (ER) | payer OTHER, SELFPAY ==
[2023-11-24 10:55] VITALS: BP 138/84; PULSE 91; RESP 16; TEMP 36.6; O2SAT 98
--- NOTE | 2023-11-24 11:01 | ED.URI ---
HPI - URI/Sore Throat General Chief Complaint: Upper Respiratory Infection Stated Complaint: wheezing,sore throat,asthmatic Time Seen by Provider: 11/24/23 11:00 Source: patient Mode of arrival: ambulatory Limitations: no limitations History of Present Illness HPI Narrative: Rashawn is a 28-year-old male patient presenting to the clinic today with complaints of wheezing, sore throat, and cough. He reports the cough is nonproductive. States symptoms been going on for 10 days base at the sore throat for 4 days. Does have history of asthma. He reports he is out of his Symbicort and very low on his albuterol inhaler. MD elicited complaint: cough, sore throat and other (WHEEZING) Related Data Home Medications Medication Instructions Recorded Confirmed budesonide-formoterol HFA 80 1 inh inhalation ONCE 02/08/23 11/24/23 mcg-4.5 mcg/actuation aerosol inhaler (Symbicort) Allergies Allergy/AdvReac Type Severity Reaction Status Date / Time Sulfa (Sulfonamide Allergy Intermediate Hives Verified 07/12/23 20:23 Antibiotics) Review of Systems Review of Systems: Pertinent positives per HPI. Patient denies any fever, chills, rash, headache, visual changes, dizziness, shortness of breath, chest pain, palpitations, nausea, vomiting, diarrhea, constipation, abdominal pain, or any urinary issues. [facility] Past Medical History Medical History Anxiety Asthma Morbid obesity Nasal septal deviation Surgical History Surgical History H/O hernia repair Family History Family History Father Alcoholism Social History Social History Smoking packs per day: 1 Smoking cigarettes per day: 20.0 Years smoked: 2 Smoking pack-years: 2.00 Smoking status: Former smoker Tobacco type: cigarettes and smokeless tobacco Smokeless tobacco user: other Second hand tobacco smoke exposure: Yes (occasionally mom smokes around patient) Smoking end date: 10/14/20 Additional smoking assessment comments: Only uses smokeless tobacco products currently Alcohol intake: never Substance use: current Substance use type: marijuana Other substance usage details: daily Living arrangements: with family Spiritual care concerns: No Comments At the time of my signature, I reviewed and agree with the nursing past medical, surgical, social, and family history. There is no relevant family history pertinent to the patient complaint. Exam Narrative: General: Well-developed, morbidly obese, in no apparent distress Head: Normocephalic, atraumatic Eyes: Pupils equally round and reactive to light bilaterally, EOM intact, sclera and conjunctive clear, no discharge, lids normal Ears: TMs intact and clear, ear canals clear, no drainage, grossly hearing normal. Nose: Nares patent, clear discharge, no inflammation, no sinus tenderness. Mouth: Oral pharynx red without lesions or masses, good dentition, MMM. Neck: Supple, trachea midline, no enlargement of anterior or posterior cervical nodes, no thyroid masses or goiter palpable. Cardio: Regular rate and rhythm, s1 and s2 normal, no murmur appreciated. Resp: Faint expiratory wheezing, no rhonchi, rales, or rubs Course Course Emergency Course: Portions of this record may have been created with voice recognition software. Level of Care: Express Care Visit Vital Signs Vital signs: Vital Signs Temperature 36.6 C 11/24/23 10:55 Pulse Rate 91 11/24/23 10:55 Respiratory Rate 16 11/24/23 10:55 Blood Pressure 138/84 11/24/23 10:55 Pulse Oximetry 98 11/24/23 10:55 Oxygen Delivery Room Air 11/24/23 10:55 Temperature 36.6 C 11/24/23 10:55 Pulse Rate 91 11/24/23 10:55 Respiratory Rate 16 11/24/23 10:55 Bloo
[2023-11-24 11:11] LABS: EDSTREPNEGPOS1 Negative (Negative)
== END 2023-11-24 11:15 | disposition home or self-care (01) ==
PROVIDERS: Emergency Provider Nurse Practitioner Family; PCP Emergency Medicine
DX: J45.909 Unspecified asthma, uncomplicated (principal); F17.290 Nicotine dependence, other tobacco product, uncomplicated; E66.01 Morbid (severe) obesity due to excess calories; Z68.31 Body mass index [BMI] 31.0-31.9, adult
CPT/HCPCS: 87081; 87880; 99213; G0463

== ENCOUNTER 2024-03-04 16:31 | Emergency (ER) | payer OTHER, SELFPAY ==
[2024-03-04 16:41] VITALS: BP 144/82; PULSE 99; RESP 16; TEMP 37.1; O2SAT 99
--- NOTE | 2024-03-04 16:47 | ED_ITS ---
HPI - URI/Sore Throat General Chief Complaint: Asthma Stated Complaint: Asthma Source: patient Mode of arrival: ambulatory Limitations: no limitations History of Present Illness HPI Narrative: 28-year-old male history of asthma presented for med refill of inhalers. He takes albuterol and Symbicort and says he has been out. Endorses occasional wheezing and shortness of breath. Currently denies these symptoms. Related Data Home Medications ?Medication ?Instructions ?Recorded ?Confirmed ?Last Taken ?Type budesonide-formoterol HFA 80 1 inh inhalation ONCE 02/08/23 11/24/23 Unknown History mcg-4.5 mcg/actuation aerosol inhaler (Symbicort) Allergies Allergy/AdvReac Type Severity Reaction Status Date / Time Sulfa (Sulfonamide Allergy Intermediate Hives Verified 03/04/24 16:53 Antibiotics) Review of Systems Review of Systems: CONSTITUTIONAL: Denies body aches, fever, chills, or sweats. EYES: Denies visual changes, redness, or discharge. ENT: Denies rhinorrhea, congestion, sore throat, or otalgia. CARDIOVASCULAR: Denies chest pain, palpitations, or edema. RESPIRATORY: Denies cough, sob, wheezing. GASTROINTESTINAL: Denies abdominal pain, nausea, vomiting, or diarrhea. SKIN: Denies rash, itching, or wounds. MUSCULOSKELETAL: Denies back pain, joint pain, or myalgia. NEUROLOGIC: Denies headache, numbness, tingling, or weakness. All systems reviewed & are unremarkable except as noted in HPI and below PMFSH Past Medical History Medical History Morbid obesity Nasal septal deviation Anxiety Asthma Surgical History Surgical History H/O hernia repair Family History Family History Father Alcoholism Social History Social History Smoking packs per day: 1 Smoking cigarettes per day: 20.0 Years smoked: 2 Smoking pack-years: 2.00 Smoking status: Former smoker Tobacco type: cigarettes and smokeless tobacco Smokeless tobacco user: other Second hand tobacco smoke exposure: Yes (occasionally mom smokes around patient) Smoking end date: 10/14/20 Additional smoking assessment comments: Only uses smokeless tobacco products currently Alcohol intake: never Substance use: current Substance use type: marijuana Other substance usage details: daily Living arrangements: with family Spiritual care concerns: No Comments At time of signature, I have reviewed and agree with nursing past medical, surgical, social and family history unless otherwise noted. Please see nursing chart for further information. There is no relevant family history pertinent to the presenting complaint Exam Narrative: GENERAL: Well-appearing, in no acute distress. EYES: EOMI. No redness or drainage. Conjunctivae normal. ENT: Mucous membranes pink and moist. No rhinorrhea. TMs normal bilaterally. Throat normal. Uvula midline. CHEST: No respiratory distress. Lungs clear to all espinoza. HEART: Regular rate and rhythm. No murmur appreciated. ABDOMEN: Soft, nontender, nondistended, normal active bowel sounds. SKIN: Warm, dry, no rash. Capillary refill normal. Normal skin turgor. NEURO: Alert and oriented x3. Gait steady. PSYCH: Normal affect. Course Course Emergency Course: Patient is aware of diagnosis, understands and agrees to treatment plan. Anticipatory guidance given. Patient agrees to follow-up as directed and is aware of reasons to seek care at the emergency department. Portions of this record may have been created with voice recognition software Level of Care: Express Care Visit Vital Signs Vital signs: Vital Signs Temperature 98.8 F 03/04/24 16:41 Pulse Rate 99 03/04/24 16:41 Respiratory Rate 16 03/04/24 16:41 Blood Pressure 144/82 H 03/04/24 16:41 Pulse Oximetry 99 03/04/24 16:41 Oxygen Delivery Room Air 03/04/24 16:41 Temperature 98.8 F 03/04/24 16:41 Pulse Rate 99 03/04/24 16:41 Respiratory Rate 16 03/04/24 16:41 Blood Pressure 144/82 H 03/04/24 16:41 Pulse Oximetry 99 03/04/24 16:41 Oxygen Delivery Room Air 03/04/24 16:41 MDM - URI/Sore Throat MDM Narrative Medical decision making narrative: Will provide refills on Symbicort and albuterol inhalers. Currently denies shortness breath or wheezing, negative exam. Advised supportive measures and signs/symptoms to go to the ER. Pt is appropriate for outpt treatment and f/u. Differential Diagnosis Differential diagnosis: Likely upper respiratory infection, viral infection, bronchitis and other (asthma) Discharge Plan Discharge Clinical Impression: Encounter for medication refill Patient Disposition: Home, Self-Care Condition: Stable Instructions: Antibiotic Form, Asthma (ED) Additional Instructions: Visit your primary care doctor if You have: wheezing, shortness of breath, or a cough despite taking medicine to prevent attacks. thickening of sputum or Your sputum changes (from clear or white to yellow, green, palmer, or bloody) any problems that may be related to the medicines you are taking (such as a rash, itching, swelling, or trouble breathing). using a reliever medicine more than 2 to 3 times per week. Visit the ER if You are: short of breath even at rest or when doing very little physical activity. develop difficulty eating, drinking, or talking due to asthma symptoms. having chest pain or you feel that your heart is beating fast. lightheaded, dizzy, faint or have bluish lips or fingernails. fever or persistent symptoms for more than 2 to 3 days or symptoms suddenly get worse. getting worse and are unresponsive to treatment during an asthma attack. Take the medication as directed Avoid triggers Follow up with your primary care provider as needed in 1 week Go to the ER for worsening symptoms or concerns Patient Language: Greenlandic Prescriptions: New albuterol sulfate 90 mcg/actuation HFA aerosol inhaler 2 inh inhalation QID PRN (Reason: shortness of breath or wheezing) Qty: 8.5 0RF budesonide-formoterol [Symbicort] 80-4.5 mcg/actuation HFA aerosol inhaler 1 puff inhalation Q12H Qty: 10.2 0RF No Action budesonide-formoterol [Symbicort] 80-4.5 mcg/actuation Hfa Aerosol Inhaler 1 inh INHALATION ONCE prednisone 20 mg tablet 40 mg PO DAILY 5 Days Qty: 10 0RF albuterol sulfate 90 mcg/actuation HFA aerosol inhaler 2 puff INHALATION QID PRN (Reason: shortness of breath or wheezing) Qty: 8.5 0RF budesonide-formoterol [Symbicort] 80-4.5 mcg/actuation HFA aerosol inhaler 1 puff inhalation BID Qty: 10.2 0RF albuterol sulfate 90 mcg/actuation HFA aerosol inhaler 2 puff inhalation Q4-6H PRN (Reason: shortness of breath or wheezing) 30 Days Qty: 8.5 0RF prednisone 20 mg tablet 40 mg PO DAILY 5 Days Qty: 10 0RF ibuprofen 800 mg tablet 800 mg PO TID PRN (Reason: pain) 7 Days Qty: 21 0RF acetaminophen 500 mg tablet 1,000 mg PO TID PRN (Reason: norah) 7 Days Qty: 42 0RF Follow-up/Referrals: Carlos Castaneda MD [Primary Care Provider] -
== END 2024-03-04 17:00 | disposition home or self-care (01) ==
PROVIDERS: Emergency Provider Nurse Practitioner Family; PCP Emergency Medicine
DX: J45.909 Unspecified asthma, uncomplicated (principal); E66.01 Morbid (severe) obesity due to excess calories; F17.290 Nicotine dependence, other tobacco product, uncomplicated
CPT/HCPCS: 99211; 99213; G0463

== ENCOUNTER 2024-05-07 14:05 | Emergency (ER) | payer OTHER, SELFPAY ==
[2024-05-07] VITALS (17 sets, daily range): BP systolic 114–152; BP diastolic 59–97; PULSE 118–134; RESP 13–21; TEMP 36.6–37.5; O2SAT 95–100
--- NOTE | ~2024-05-07 | XR_ITS ---
CHEST RADIOGRAPH CLINICAL HISTORY: dyspnea . COMPARISON: 06/10/2022 TECHNIQUE: Single portable view of the chest. FINDINGS The cardiomediastinal silhouette is unremarkable. The lungs are clear. Visualized osseous structures and soft tissues are unremarkable. IMPRESSION: No focal infiltrate or effusion. Reviewed, dictated and finalized at location A. WORKER
--- NOTE | 2024-05-07 14:31 | ECG_ITS ---
Test Date: 2024-05-07 15:04:30 Measurements Intervals Ethel Rate: 123 P: 68 DC: 128 QRS: 72 QRSD: 91 T: 44 QT: 291 QTc: 416 Interpretive Statements SINUS TACHYCARDIA DELAYED PRECORDIAL R/S TRANSITION BASELINE ARTIFACT- I, II, AVR, AVL, AVF ABNORMAL ECG No previous ECG available for comparison Electronically Signed On 05-07-2024 15:14:32 HEALTHCARE APPLICATIONS ANALYST by Michael Medina D.O.
--- NOTE | 2024-05-07 14:33 | ED.GENADULT ---
HPI - General Adult General Chief complaint: Unspecified <Emeli Bañuelos PA-C - Last Filed: 05/07/24 14:38> Stated complaint: alcohol and flu <Emeli Bañuelos PA-C - Last Filed: 05/07/24 14:38> Time Seen by Provider: 05/07/24 16:22 <Emeli Bañuelos PA-C - Last Filed: 05/07/24 14:38> Focused HPI: 28-year-old male presents emergency department for flu-like symptoms for the past 24 hours. Patient reporting nausea, body aches, headache, shortness of breath, mild cough. Patient reports low-grade fevers at home. No vomiting. He also notes he normally drinks a 5th of whiskey a day for the past year. He stopped drinking 25 hours ago. He is waiting for a bed for inpatient detox at [facility]. He is reporting tremors, anxiety, headache. Denies hallucinations, tactile disturbances. He does endorse a history of alcohol withdrawal but has never had withdrawal seizures. GENERAL: Well-appearing, well-nourished, and in no acute distress. HEAD: Normocephalic, atraumatic. CHEST: Clear to auscultation. ?No respiratory distress. EXT: Course tremor to hands with arms extended HEART: Regular rate and rhythm.? NEURO: ?Alert and oriented x3. Patient screened in triage and initial orders placed.? ?Additional care and disposition to be based upon?diagnostic testing and treatment. <Emeli Bañuelos PA-C - Last Filed: 05/07/24 14:38> History of Present Illness HPI narrative: Patient is a 28-year-old gentleman presents emergency department chief complaint of flu-like symptoms. The patient reports that he started not feeling well over the last several days this been prevented him from drinking his normal amount of alcohol over he chooses to drink about a 5th fireball per day patient reports that he has been drinking this much for a long period time reports that he is planning on going to alcohol treatment in the near future <Sehkhar Krause MD - Last Filed: 05/07/24 18:09> Related Data Home medications: Home Medications ?Medication ?Instructions ?Recorded ?Confirmed ?Last Taken ?Type budesonide-formoterol HFA 80 1 inh inhalation ONCE 02/08/23 11/24/23 Unknown History mcg-4.5 mcg/actuation aerosol inhaler (Symbicort) <Emeli Bañuelos PA-C - Last Filed: 05/07/24 14:38> Allergies/adverse reactions: Allergies Allergy/AdvReac Type Severity Reaction Status Date / Time Sulfa (Sulfonamide Allergy Intermediate Hives Verified 03/04/24 16:53 Antibiotics) <Emeli Bañuelos PA-C - Last Filed: 05/07/24 14:38> Review of Systems Review of Systems: A 10 system review of systems was completed on the patient and is negative except for what is stated in the HPI. Nursing and ancillary documentation was reviewed. <Shekhar Krause MD - Last Filed: 05/07/24 18:09> PMF Past Medical History Medical History: Medical History Morbid obesity Nasal septal deviation Anxiety Asthma <Emeli Bañuelos PA-C - Last Filed: 05/07/24 14:38> Surgical History Surgical History: Surgical History H/O hernia repair <Emeli Bañuelos PA-C - Last Filed: 05/07/24 14:38> Family History Family History: Family History Father Alcoholism <Emeli Bañuelos PA-C - Last Filed: 05/07/24 14:38> Social History Social History: Social History Smoking packs per day: 1 Smoking cigarettes per day: 20.0 Years smoked: 2 Smoking pack-years: 2.00 Smoking status: Former smoker Tobacco type: cigarettes and smokeless tobacco Smokeless tobacco user: other Second hand tobacco smoke exposure: Yes (occasionally mom smokes around patient) Smoking end date: 10/14/20 Additional smoking assessment comments: Only uses smokeless tobacco products currently Alcohol intake: never Substance use: current Substance use type: marijuana Other substance usage details: daily Living arrangements: with family Spiritual care concerns: No <Emeli Bañuelos PA-C - Last Filed: 05/07/24 14:38> Exam Narrative: GENERAL: Well-appearing, well-nourished, and in no acute distress. HEAD: Normocephalic, atraumatic. EYES: PERRLA and EOMI. ENT: Nares clear, no rhinorrhea or epistaxis. Mucous membranes moist. NECK: Supple. CHEST: Clear to auscultation. No respiratory distress. HEART: Regular rate and rhythm. No murmur heard. Normal peripheral pulses. ABDOMEN: Soft, nontender, nondistended, normal active bowel sounds. EXTREMITIES: Normal range of motion. No edema. SKIN: Warm, dry, no rash. NEURO: No focal deficits. Alert and oriented x3. PSYCH: Normal mood and affect. <Shekhar Krause MD - Last Filed: 05/07/24 18:09> Course Vital Signs Vital signs: Vital Signs Temperature 37.2 C 05/07/24 14:20 Pulse Rate 125 H 05/07/24 14:20 Respiratory Rate 18 05/07/24 14:20 Blood Pressure 139/97 H 05/07/24 14:20 Pulse Oximetry 95 05/07/24 14:20 Temperature 37.5 C 05/07/24 16:16 Pulse Rate 120 H 05/07/24 17:45 Respiratory Rate 21 H 05/07/24 17:45 Blood Pressure 128/59 L 05/07/24 17:02 Pulse Oximetry 96 05/07/24 17:15 <Emeli Bañuelos PA-C - Last Filed: 05/07/24 14:38> Vital Signs Temperature 37.2 C 05/07/24 14:20 Pulse Rate 125 H 05/07/24 14:20 Respiratory Rate 18 05/07/24 14:20 Blood Pressure 139/97 H 05/07/24 14:20 Pulse Oximetry 95 05/07/24 14:20 Temperature 37.5 C 05/07/24 16:16 Pulse Rate 120 H 05/07/24 17:45 Respiratory Rate 21 H 05/07/24 17:45 Blood Pressure 128/59 L 05/07/24 17:02 Pulse Oximetry 96 05/07/24 17:15 <Shekhar Krause MD - Last Filed: 05/07/24 18:09> Medical Decision Making MDM Narrative Medical decision making narrative: Differential diagnosis includes pneumonia, influenza, alcohol withdrawal Patient is found to be influenza positive chest x-ray showed no evidence of pneumonia <Shekhar Krause MD - Last Filed: 05/07/24 18:09> Vital Signs Vital Signs: Vital Signs Temperature 37.2 C 05/07/24 14:20 Pulse Rate 125 H 05/07/24 14:20 Respiratory Rate 18 05/07/24 14:20 Blood Pressure 139/97 H 05/07/24 14:20 Pulse Oximetry 95 05/07/24 14:20 Temperature 37.5 C 05/07/24 16:16 Pulse Rate 120 H 05/07/24 17:45 Respiratory Rate 21 H 05/07/24 17:45 Blood Pressure 128/59 L 05/07/24 17:02 Pulse Oximetry 96 05/07/24 17:15 <Emeli Bañuelos PA-C - Last Filed: 05/07/24 14:38> Vital Signs Temperature 37.2 C 05/07/24 14:20 Pulse Rate 125 H 05/07/24 14:20 Respiratory Rate 18 05/07/24 14:20 Blood Pressure 139/97 H 05/07/24 14:20 Pulse Oximetry 95 05/07/24 14:20 Temperature 37.5 C 05/07/24 16:16 Pulse Rate 120 H 05/07/24 17:45 Respiratory Rate 21 H 05/07/24 17:45 Blood Pressure 128/59 L 05/07/24 17:02 Pulse Oximetry 96 05/07/24 17:15 <Shekhar Krause MD - Last Filed: 05/07/24 18:09> Lab Data Result diagrams: 05/07/24 15:05 05/07/24 15:05 <Emeli Bañuelos PA-C - Last Filed: 05/07/24 14:38> Labs: Lab Results 05/07/24 05/07/24 Range/Units 15:05 17:05 WBC 7.9 (4.5-10.0) K/mm3 RBC 5.58 (4.6-6.20) M/mm3 Hgb 17.8 (14.0-18.0) g/dL Hct 51.2 (42.0-52.0) % MCV 91.8 (80-100) fl MCH 31.9 (26-34) pg MCHC 34.8 (32-36) g/dl RDW 14.9 H (11.5-14.5) % Plt Count 178 (150-375) k/mm3 MPV 11.1 H (7.4-10.4) fl Immature Gran % (Auto) 0.4 (0-0.5) % Neut % (Auto) 85.0 H (45.5-73.1) % Lymph % (Auto) 3.2 L (18.3-44.2) % [place] % (Auto) 9.6 H (2.6-8.5) % Eos % (Auto) 1.3 (0-4.4) % Baso % (Auto) 0.5 (0.2-1.2) % Lymph # (Auto) 0.25 L (0.9-3.2) K/mm3 [place] # (Auto) 0.8 H (0.1-0.6) K/mm3 Eos # (Auto) 0.1 (0-0.3) K/mm3 Baso # (Auto) 0.0 (0.0-0.1) K/mm3 Abs Immat Gran (auto) 0.03 (0.00-0.031) K/mm3 Absolute Neuts (auto) 6.8 H (1.3-6.7) K/mm3 Absolute Nucleated RBC 0.000 (0.0-0.012) K/mm3 Nucleated RBC % 0.0 (0.0-0.2) % PT 12.7 (11.1-14.7) Seconds INR 0.9 APTT 27.5 (22.3-36.8) Seconds Sodium 135 L (137-145) mmol/L Potassium 4.1 (3.4-5.0) mmol/L Chloride 100 (98-107) mmol/L Carbon Dioxide 22 (22-30) mmol/L Anion Gap 13 H (4-12) mmol/L BUN 8 L (9-20) mg/dL Creatinine 0.89 (0.7-1.3) mg/dL Estim Creat Clear Calc 148 ml/min Estimated GFR > 60 (59 - ) Glucose 109 (65-110) mg/dL Calcium 9.6 (8.4-10.2) mg/dL Phosphorus 2.4 L (2.5-4.5) mg/dL Magnesium 1.7 (1.6-2.3) mg/dL Total Bilirubin 0.7 (0.2-1.3) mg/dL AST 46 (17-59) U/L ALT 39 (6-50) U/L Alkaline Phosphatase 67 (38-126) U/L Total Protein 8.0 (6.3-8.2) g/dL Albumin 4.5 (3.5-5.1) g/dL Urine Color Yellow (Yellow) Urine Appearance Clear (Clear) Urine pH 5.5 (5.0-9.0) Ur Specific [place] 1.022 (1.001-1.035) Urine Protein Negative (Negative) mg/dL Urine Glucose (UA) Negative (Negative) mg/dL Urine Ketones Negative (Negative) mg/dL Ur Blood (Man) Negative (Negative) Urine Nitrate Negative (Negative) Urine Bilirubin Negative (Negative) Urine Urobilinogen 0.2 (<2.0) mg/dL Leukocyte Esterase Rfl Negative (Negative) CHRYSTAL/UL Urine Opiates Screen Pending Urine Methadone Screen Pending Ur Barbiturates Screen Pending Ur Phencyclidine Scrn Pending Ur Amphetamine Screen Pending U Benzodiazepines Scrn Pending Urine Cocaine Screen Pending U Cannabinoids Screen Pending Influenza A (RT-PCR) Positive A (Negative) Influenza B (RT-PCR) Negative (Negative) RSV (RT-PCR) Negative (Negative) SARS-CoV-2 RNA (RT-PCR) Negative (Negative) <Emeli Bañuelos PA-C - Last Filed: 05/07/24 14:38> Lab Results 05/07/24 05/07/24 Range/Units 15:05 17:05 WBC 7.9 (4.5-10.0) K/mm3 RBC 5.58 (4.6-6.20) M/mm3 Hgb 17.8 (14.0-18.0) g/dL Hct 51.2 (42.0-52.0) % MCV 91.8 (80-100) fl MCH 31.9 (26-34) pg MCHC 34.8 (32-36) g/dl RDW 14.9 H (11.5-14.5) % Plt Count 178 (150-375) k/mm3 MPV 11.1 H (7.4-10.4) fl Immature Gran % (Auto) 0.4 (0-0.5) % Neut % (Auto) 85.0 H (45.5-73.1) % Lymph % (Auto) 3.2 L (18.3-44.2) % [place] % (Auto) 9.6 H (2.6-8.5) % Eos % (Auto) 1.3 (0-4.4) % Baso % (Auto) 0.5 (0.2-1.2) % Lymph # (Auto) 0.25 L (0.9-3.2) K/mm3 [place] # (Auto) 0.8 H (0.1-0.6) K/mm3 Eos # (Auto) 0.1 (0-0.3) K/mm3 Baso # (Auto) 0.0 (0.0-0.1) K/mm3 Abs Immat Gran (auto) 0.03 (0.00-0.031) K/mm3 Absolute Neuts (auto) 6.8 H (1.3-6.7) K/mm3 Absolute Nucleated RBC 0.000 (0.0-0.012) K/mm3 Nucleated RBC % 0.0 (0.0-0.2) % PT 12.7 (11.1-14.7) Seconds INR 0.9 APTT 27.5 (22.3-36.8) Seconds Sodium 135 L (137-145) mmol/L Potassium 4.1 (3.4-5.0) mmol/L Chloride 100 (98-107) mmol/L Carbon Dioxide 22 (22-30) mmol/L Anion Gap 13 H (4-12) mmol/L BUN 8 L (9-20) mg/dL Creatinine 0.89 (0.7-1.3) mg/dL Estim Creat Clear Calc 148 ml/min Estimated GFR > 60 (59 - ) Glucose 109 (65-110) mg/dL Calcium 9.6 (8.4-10.2) mg/dL Phosphorus 2.4 L (2.5-4.5) mg/dL Magnesium 1.7 (1.6-2.3) mg/dL Total Bilirubin 0.7 (0.2-1.3) mg/dL AST 46 (17-59) U/L ALT 39 (6-50) U/L Alkaline Phosphatase 67 (38-126) U/L Total Protein 8.0 (6.3-8.2) g/dL Albumin 4.5 (3.5-5.1) g/dL Urine Color Yellow (Yellow) Urine Appearance Clear (Clear) Urine pH 5.5 (5.0-9.0) Ur Specific [place] 1.022 (1.001-1.035) Urine Protein Negative (Negative) mg/dL Urine Glucose (UA) Negative (Negative) mg/dL Urine Ketones Negative (Negative) mg/dL Ur Blood (Man) Negative (Negative) Urine Nitrate Negative (Negative) Urine Bilirubin Negative (Negative) Urine Urobilinogen 0.2 (<2.0) mg/dL Leukocyte Esterase Rfl Negative (Negative) CHRYSTAL/UL Urine Opiates Screen Pending Urine Methadone Screen Pending Ur Barbiturates Screen Pending Ur Phencyclidine Scrn Pending Ur Amphetamine Screen Pending U Benzodiazepines Scrn Pending Urine Cocaine Screen Pending U Cannabinoids Screen Pending Influenza A (RT-PCR) Positive A (Negative) Influenza B (RT-PCR) Negative (Negative) RSV (RT-PCR) Negative (Negative) SARS-CoV-2 RNA (RT-PCR) Negative (Negative) <Shekhar Krause MD - Last Filed: 05/07/24 18:09> Discharge Plan Discharge Clinical Impression: Influenza, Alcoholism <Emeli Bañuelos PA-C - Last Filed: 05/07/24 14:38> Patient Disposition: Home, Self-Care <Emeli Bañuelos PA-C - Last Filed: 05/07/24 14:38> Condition: Stable <Emeli Bañuelos PA-C - Last Filed: 05/07/24 14:38> Instructions: Antibiotic Form, Influenza (ED), Alcohol Use Disorder (ED) <Emeli Bañuelos PA-C - Last Filed: 05/07/24 14:38> Patient Language: Uzbek <Emeli Bañuelos PA-C - Last Filed: 05/07/24 14:38> Prescriptions: New oseltamivir [Tamiflu] 75 mg capsule 75 mg PO Q12H 5 Days Qty: 10 0RF No Action budesonide-formoterol [Symbicort] 80-4.5 mcg/actuation Hfa Aerosol Inhaler 1 inh INHALATION ONCE prednisone 20 mg tablet 40 mg PO DAILY 5 Days Qty: 10 0RF albuterol sulfate 90 mcg/actuation HFA aerosol inhaler 2 puff INHALATION QID PRN (Reason: shortness of breath or wheezing) Qty: 8.5 0RF budesonide-formoterol [Symbicort] 80-4.5 mcg/actuation HFA aerosol inhaler 1 puff inhalation BID Qty: 10.2 0RF albuterol sulfate 90 mcg/actuation HFA aerosol inhaler 2 puff inhalation Q4-6H PRN (Reason: shortness of breath or wheezing) 30 Days Qty: 8.5 0RF prednisone 20 mg tablet 40 mg PO DAILY 5 Days Qty: 10 0RF albuterol sulfate 90 mcg/actuation HFA aerosol inhaler 2 inh inhalation QID PRN (Reason: shortness of breath or wheezing) Qty: 8.5 0RF budesonide-formoterol [Symbicort] 80-4.5 mcg/actuation HFA aerosol inhaler 1 puff inhalation Q12H Qty: 10.2 0RF ibuprofen 800 mg tablet 800 mg PO TID PRN (Reason: pain) 7 Days Qty: 21 0RF acetaminophen 500 mg tablet 1,000 mg PO TID PRN (Reason: norah) 7 Days Qty: 42 0RF <Emeli Bañuelos PA-C - Last Filed: 05/07/24 14:38> Follow-up/Referrals: [facility] [Outside] Carlos Castaneda MD [Primary Care Provider] - <Emeli Bañuelos PA-C - Last Filed: 05/07/24 14:38> Time of Disposition: 18:09 <Emeli Bañuelos PA-C - Last Filed: 05/07/24 14:38> 18:09 <Shekhar Krause MD - Last Filed: 05/07/24 18:09>
[2024-05-07 15:13] LABS: Basophils Percent Auto 0.5 % (0.2-1.2); Eosinophils Absolute Auto 0.1 K/mm3 (0-0.3); Eosinophils Percent Auto 1.3 % (0-4.4); Hematocrit 51.2 % (42.0-52.0); Hemoglobin 17.8 g/dL (14.0-18.0); Immature Granulocyte Absolute 0.03 K/mm3 (0.00-0.031); Immature Granulocyte Percent A 0.4 % (0-0.5); Lymphocytes Absolute Auto 0.25 K/mm3 (0.9-3.2); Lymphocytes Percent Auto 3.2 % (18.3-44.2); Mean Corpuscular HGB Conc 34.8 g/dl (32-36); Mean Corpuscular Hemoglobin 31.9 pg (26-34); Mean Corpuscular Volume 91.8 fl (80-100); Mean Platelet Volume 11.1 fl (7.4-10.4); Monocytes Absolute Auto 0.8 K/mm3 (0.1-0.6); Monocytes Percent Auto 9.6 % (2.6-8.5); Neutrophils Absolute Auto 6.8 K/mm3 (1.3-6.7); Platelet Count Result 178 k/mm3 (150-375); Red Blood Count 5.58 M/mm3 (4.6-6.20); Red Cell Distribution Width 14.9 % (11.5-14.5); White Blood Count 7.9 K/mm3 (4.5-10.0)
[2024-05-07 15:35] LABS: INR 0.9; Prothrombin Time 12.7 Seconds (11.1-14.7)
[2024-05-07 15:36] LABS: Partial Thromboplastin Time 27.5 Seconds (22.3-36.8)
[2024-05-07 15:50] LABS: Influenza A QL RT-PCR Positive (Negative); Influenza B QL RT-PCR Negative (Negative); RSV RNA, RT-PCR Negative (Negative); SARS-CoV-2 RNA PCR Negative (Negative)
[2024-05-07] MEDS: SODIUM CHLORIDE 0.9% IV 1,000 ML 999 ML IV CONT (16:20)
[2024-05-07] MEDS: diazePAM INJ (*CRX) 10 MG/2 ML SYRINGE 5 MG IV PUSH (16:21)
--- OUTSIDE RECORDS SUMMARY | 2024-05-07 16:23 | XMS_ITS | Clinical Summary ---
Author Organization [facility] Address [address] [place] [id number] Care Team Providers Care Transcribing Operators Supervisor Name Role Phone Unavailable Primary Care Provider Unavailabl e Social History Tobacco Use Types Packs/Day Years Used Date Smoking Tobacco: Never Assessed Sex and Gender Information Value Date Recorded Sex Assigned at Not on file Legal Sex Male 11:12 AM CDT Gender Identity Not on file Sexual Orientation Not on file Plan of Treatment Health Maintenance Due Date Last Done Comments Annual Physical 10/08/1998 Hepatitis C 10/08/2013 DTaP, Tdap and Td Vaccines ( 1 - Tdap) 10/08/2014 Hepatitis B Vaccines (1 of 3 - 19+ 3-dose series) 10/08/2014 COVID-19 Vaccine (2023-2 5 season) 2023 Influenza Adult (#1) 2023 HPV Vaccines Aged Out No longer eligi ble based on patient's age to complete this topic Meningococcal B Vaccine Aged Out No l onger eligible based on patient's age to complete this topic Meningococcal Vaccine Aged Out No parker kathie eligible based on patient's age to complete this topic Pneumococcal Vaccine: Pediat rics (0 to 5 Years) and At-Risk Patients (6 to 64 Years) Aged Out No longer eligible b ased on patient's age to complete this topic RSV Immunizations Under 20 Months Aged Out No longer eligible based on patient's age to complete this topic
--- OUTSIDE RECORDS SUMMARY | 2024-05-07 16:23 | XMS_ITS | Clinical Summary ---
Author Organization [facility] Care Team Providers Care Industrial Gas Service Helper Name Role Phone Unavailable Primary Care Provider Unavailabl e Social History Tobacco Use Types Packs/Day Years Used Date Smoking Tobacco: Never Assessed Sex and Gender Information Value Date Recorded Sex Assigned at Not on file Legal Sex Male 5:09 PM CDT Gender Identity Not on file Sexual Orientation Not on file Plan of Treatment Health Maintenance Due Date Last Done Comments Hepatitis C Virus (HCV) Screening 1995 Influenza Immunization (#1) 2023 11/30/2011 SARS-COV-2 Immunization ( season) 2023 Respiratory Syncytial Virus (RSV) Immunization (Adult) (1 - 1-dose 75+ series) 10/08/2070 Hepatitis B Immunization Completed 997, 1995, 1995 Meningococcal Immunization (ACWY) Completed 08/11/2012, 08/05/2009 Human Papillomavirus (HPV) Immunization Discontinued 09/05/2013, 08/11/2012 Pneumococcal Immunization Combined Aged Out 02/01/2014 No longer eligible based on patient's age to complete this topic DTaP/Tdap/Td Immunization Discontinued 2017, 11/04/2005, 10/22/2000, Additional history exists TdaP Immunization Completed 03/18/2017 Rotavirus Immunization Aged Out No lo nger eligible based on patient's age to complete this topic
[2024-05-07 17:05] LABS: Alanine Aminotransferase 39 U/L (6-50); Albumin Level 4.5 g/dL (3.5-5.1); Alkaline Phosphatase 67 U/L (38-126); Anion Gap 13 mmol/L (4-12); Aspartate Amino Transferase 46 U/L (17-59); Bilirubin,Total 0.7 mg/dL (0.2-1.3); Blood Urea Nitrogen 8 mg/dL (9-20); Calcium 9.6 mg/dL (8.4-10.2); Carbon Dioxide 22 mmol/L (22-30); Chloride 100 mmol/L (98-107); Estimated CRCL calculation 148 ml/min; Estimated Glomerular Filt Rate > 60; Glucose 109 mg/dL (65-110); Magnesium 1.7 mg/dL (1.6-2.3); Phosphorus 2.4 mg/dL (2.5-4.5); Potassium 4.1 mmol/L (3.4-5.0); Sodium 135 mmol/L (137-145)
[2024-05-07 17:16] LABS: Add Urine Microscopic? NO; Appearance Urine Clear (Clear); Bilirubin Urine Negative (Negative); Blood Urine Negative (Negative); Color Urine Yellow (Yellow); Glucose Urine UA Negative (Negative); Ketones Urine Negative (Negative); Leukocyte Esterase Ur Negative LEU/UL (Negative); Nitrate Urine Negative (Negative); Protein Urine Negative (Negative); Specific Grav Ur 1.022 (1.001-1.035); Urobilinogen Urine 0.2 mg/dL (<2.0); pH Urine 5.5 (5.0-9.0)
[2024-05-07 18:09] LABS: Amphetamine Screen Urine Negative (Negative); Barbiturate Screen Urine Negative (Negative); Benzodiazepines Screen Urine Negative (Negative); Cannabinoid Screen Urine Positive (Negative); Cocaine Screen Urine Negative (Negative); Methadone Screen Urine Negative (Negative); Opiate Screen Urine Negative (Negative); Phencyclidine Screen Urine Negative (Negative)
[2024-05-07] MEDS: IBUPROFEN 400 MG TABLET 800 MG PO (18:17)
--- OUTSIDE RECORDS SUMMARY | 2024-05-07 18:47 | XMS_ITS | Clinical Summary ---
Author Organization [facility] Care Team Providers Care Full Stack Python Developer Name Role Phone Unavailable Primary Care Provider [...]
--- OUTSIDE RECORDS SUMMARY | 2024-05-07 18:47 | XMS_ITS | Clinical Summary ---
Author Organization [facility] Address [address] [place] [address] Care Team Providers Care Draw Frame Runner Name Role Phone Unavailable Primary Care Provider [...]
== END 2024-05-07 18:25 | disposition home or self-care (01) ==
PROVIDERS: Physician Assistant; Emergency Provider Emergency Medicine; PCP Emergency Medicine
DX: J11.1 Influenza due to unidentified influenza virus with other respiratory manifestations (principal); F10.20 Alcohol dependence, uncomplicated; Z20.822 Contact with and (suspected) exposure to COVID-19; E66.01 Morbid (severe) obesity due to excess calories; Z68.37 Body mass index [BMI] 37.0-37.9, adult; J45.909 Unspecified asthma, uncomplicated; F41.9 Anxiety disorder, unspecified; F17.220 Nicotine dependence, chewing tobacco, uncomplicated; R00.0 Tachycardia, unspecified
CPT/HCPCS: 36415; 71045; 80053; 80307; 81003; 83735; 84100; 85025; 85610; 85730; 87637; 93005; 96361; 96374; 96375; 99284; A9270; J3360; J7030

== ENCOUNTER 2024-09-27 13:46 | Emergency (ER) | payer OTHER, SELFPAY ==
--- NOTE | 2024-09-27 13:48 | ED_ITS ---
HPI - URI/Sore Throat General Chief Complaint: Asthma Stated Complaint: Asthma, Need an inhaler Time Seen by Provider: 09/27/24 13:50 Source: patient Mode of arrival: ambulatory Limitations: no limitations History of Present Illness HPI Narrative: Patient is a 28-year-old male who presents for refill of asthma medications. Patient states his asthma has been flaring mostly in the morning. Patient does denies any wheezing or shortness breath at this time. Related Data Home Medications ?Medication ?Instructions ?Recorded ?Confirmed ?Last Taken ?Type budesonide-formoterol HFA 80 1 inh inhalation ONCE 02/08/23 11/24/23 Unknown History mcg-4.5 mcg/actuation aerosol inhaler (Symbicort) Allergies Allergy/AdvReac Type Severity Reaction Status Date / Time Sulfa (Sulfonamide Allergy Intermediate Hives Verified 09/27/24 13:53 Antibiotics) Review of Systems Review of Systems: All systems reviewed & are unremarkable except as noted in HPI and below Constitutional: Constitutional: Denies body ache(s), Denies chills, Denies fatigue, Denies fever(s), Denies headache(s), Denies malaise and Denies weakness Eyes: Eyes: Denies blurry vision, Denies irritation and Denies loss of vision ENT: Denies otalgia, Denies headache(s), Denies nasal discharge, Denies sinus pain and Denies sore throat Cardiovascular: Cardiovascular: Denies chest pain, Denies irregular heart rhythm and Denies dyspnea Respiratory: Respiratory: Denies dyspnea and Reports wheezing Gastrointestinal: Gastrointestinal: Denies abdominal pain, Denies melena, Denies hematochezia, Denies diarrhea, Denies nausea and Denies vomiting Musculoskeletal: Musculoskeletal: Denies back pain, Denies myalgias and Denies arthralgias Integumentary/Breasts: Skin/Breast: Denies pruritus and Denies rash Neurologic: Denies headache(s), Denies loss of vision and Denies weakness Psychiatric: Psychiatric: Reports no additional psychiatric complaints Endocrine: Endocrine: Denies fatigue PMFSH Past Medical History Medical History Morbid obesity Nasal septal deviation Anxiety Asthma Surgical History Surgical History H/O hernia repair Family History Family History Father Alcoholism Social History Social History Smoking packs per day: 1 Smoking cigarettes per day: 20.0 Years smoked: 2 Smoking pack-years: 2.00 Smoking status: Former smoker Tobacco type: cigarettes and smokeless tobacco Smokeless tobacco user: other Second hand tobacco smoke exposure: Yes (occasionally mom smokes around patient) Smoking end date: 10/14/20 Additional smoking assessment comments: Only uses smokeless tobacco products currently Alcohol intake: never Substance use: current Substance use type: marijuana Other substance usage details: daily Living arrangements: with family Spiritual care concerns: No Comments At time of signature, agree with nursing past medical, surgical, social and family history. There is no relevant family history pertinent to the presenting complaint. Exam Const: General: cooperative, healthy appearing, comfortable, no acute distress and well nourished Nutritional Appearance: well nourished Orientation/consciousness: patient oriented x3 Limitations: no limitations HENMT: Head: normal to inspection, normocephalic and atraumatic Ears: hearing grossly normal bilaterally and external ears normal Face/Nose/Sinus: Normal external nose present, normal facial exam and face symmetric Face and sinus: normal facial exam and face symmetric Mouth: Yes lip normal Eyes: General: appearance normal, both eyes and all related structures Alignment and Position: alignment normal and position normal Periorbital: periorbital findings normal Eyelids: eyelids normal Pupils: Equal, round and reactive pupils present EOM: EOMs intact bilaterally Neck: Neck: normal visual inspection, full ROM and supple Chest: Chest palpation & inspection: normal inspection of the chest Resp: Effort & Inspection: normal respiratory effort and able to speak in complete sentences Auscultation: clear to auscultation bilaterally, no crackles, no rales, no rhonchi and no wheezes Cardio: Rate: tachycardic Rhythm: regular rhythm Heart sounds: S1 normal heart sound present and S2 normal heart sound present GI: Inspection: normal to inspection Skin: General skin exam: normal color and no rashes or lesions noted Neuro: General: patient oriented x3 and moves all extremities Cranial nerves: Yes Equal, round and reactive pupils present Speech: normal speech Gait exam (Neuro): Normal gait present Extrem: General: normal to inspection, full ROM and no edema Psych: Appearance: grossly normal and well kempt Mental Status: mental status grossly normal Speech and movement: Normal speech and movement present Affect: normal affect Attitude: cooperative Thought process: Normal thought process present Course Course Emergency Course: Patient is aware of diagnosis, understands and agrees to treatment plan. Anticipatory guidance given. Patient agrees to follow-up as directed and is aware of reasons to seek care at the emergency department. Portions of this record may have been created with voice recognition software Level of Care: Express Care Visit Vital Signs Vital signs: Reviewed MDM - URI/Sore Throat MDM Narrative Medical decision making narrative: No significant signs of asthma exacerbation. Will refill inhalers and have patient follow-up with PCP Pt well hydrated appearing, in no respiratory distress, hemodynamically stable. Recommend supportive care. The patient is stable at time of discharge the clinical impression was discussed and the patient was given the opportunity to ask questions, which were addressed as completely as possible given the information available at present. Anticipatory guidance and return to care precautions were discussed and the importance of primary care follow-up was stressed and encouraged. The patient voiced understanding of the plan, indications to return, and the need for follow-up. Exam findings show no acute concerns or changes Patient is appropriate for outpatient treatment and follow-up. Differential Diagnosis Differential diagnosis: Likely upper respiratory infection, viral infection and other (Asthma exacerbation, medication refill) Medical Records Attestation: I reviewed the patient's medical records. Discharge Plan Discharge Clinical Impression: Asthma, Medication refill Patient Disposition: Home Condition: Stable Instructions: Asthma (ED) Additional Instructions: 1) Please follow-up with your primary care doctor in the next 1-2 weeks. 2) If you have any worsening of symptoms or any other urgent concerns please go to the ER. 3) Please take medications as prescribed and continue taking your home medications as usual. 4) Please read and follow information included in discharge instructions. Your blood pressure was elevated above 120/80 today at Urgent Care. This puts you above the threshold for follow up visit with a primary care provider. High blood pressure does not usually cause any symptoms, however it may lead to kidney failure, stroke, heart disease just to name a few if untreated . Many people are anxious when seeing a provider or nurse. As a result, you are not diagnosed with hypertension at this time unless your blood pressure is persistently high at two office visits at least one week apart. Some things that can help lower blood pressure are lifestyle modifications, such as light exercise, decreased salt in diet, and weight loss. It is important to follow up with a PCP about this within 1 week. Patient Language: Spanish Prescriptions: New albuterol sulfate 90 mcg/actuation HFA aerosol inhaler 2 puff inhalation QID PRN (Reason: shortness of breath or wheezing) Qty: 6.7 0RF (DME) Aerochamber MV Spacer See Rx Instructions .Route Qty: 1 0RF Rx Instructions: As directed budesonide-formoterol [Symbicort] 80-4.5 mcg/actuation HFA aerosol inhaler 1 puff inhalation DAILY Qty: 10.2 0RF No Action budesonide-formoterol [Symbicort] 80-4.5 mcg/actuation Hfa Aerosol Inhaler 1 inh INHALATION ONCE prednisone 20 mg tablet 40 mg PO DAILY 5 Days Qty: 10 0RF albuterol sulfate 90 mcg/actuation HFA aerosol inhaler 2 puff INHALATION QID PRN (Reason: shortness of breath or wheezing) Qty: 8.5 0RF budesonide-formoterol [Symbicort] 80-4.5 mcg/actuation HFA aerosol inhaler 1 puff inhalation BID Qty: 10.2 0RF albuterol sulfate 90 mcg/actuation HFA aerosol inhaler 2 puff inhalation Q4-6H PRN (Reason: shortness of breath or wheezing) 30 Days Qty: 8.5 0RF prednisone 20 mg tablet 40 mg PO DAILY 5 Days Qty: 10 0RF albuterol sulfate 90 mcg/actuation HFA aerosol inhaler 2 inh inhalation QID PRN (Reason: shortness of breath or wheezing) Qty: 8.5 0RF budesonide-formoterol [Symbicort] 80-4.5 mcg/actuation HFA aerosol inhaler 1 puff inhalation Q12H Qty: 10.2 0RF ibuprofen 800 mg tablet 800 mg PO TID PRN (Reason: pain) 7 Days Qty: 21 0RF acetaminophen 500 mg tablet 1,000 mg PO TID PRN (Reason: norah) 7 Days Qty: 42 0RF oseltamivir [Tamiflu] 75 mg capsule 75 mg PO Q12H 5 Days Qty: 10 0RF Follow-up/Referrals: Carlos Castaneda MD [Physician] - 3 Days Time of Disposition: 14:40
[2024-09-27 13:50] VITALS: BP 157/93; PULSE 102; RESP 16; TEMP 36.6; O2SAT 98
== END 2024-09-27 14:43 | disposition home or self-care (01) ==
PROVIDERS: Emergency Provider Nurse Practitioner Family
DX: J45.909 Unspecified asthma, uncomplicated (principal); Z87.891 Personal history of nicotine dependence; Z76.0 Encounter for issue of repeat prescription
CPT/HCPCS: 99211; G0463

== ENCOUNTER 2024-11-24 14:57 | Emergency (ER) | payer OTHER, SELFPAY ==
[2024-11-24 15:07] VITALS: BP 143/91; PULSE 94; RESP 18; TEMP 36.3; O2SAT 99
--- NOTE | 2024-11-24 15:45 | ED_ITS ---
HPI - Asthma General Chief Complaint: Asthma Stated Complaint: Asthma patient presents to the [facility] with request for refill on Symbicort and albuterol inhalers. Patient noted he does have a primary care physician but has been out of his medication for about 1 week and has come here previously to have refills. Patient denies any current difficulty breathing, cough, wheezing, or chest tightness. Related Data Allergies Allergy/AdvReac Type Severity Reaction Status Date / Time Sulfa (Sulfonamide Allergy Intermediate Hives Verified 11/24/24 15:02 Antibiotics) Review of Systems Constitutional: Constitutional: Reports as per HPI, Denies chills, Denies fatigue, Denies fever(s) and Denies weakness Eyes: Eyes: Reports no additional eye complaints ENT: Reports system reviewed and no additional complaints, except as documented Cardiovascular: Cardiovascular: Reports no additional cardiovascular complaints Respiratory: Respiratory: Reports as per HPI, Denies chest congestion, Denies cough, Denies dyspnea and Denies wheezing Gastrointestinal: Gastrointestinal: Reports no additional gastrointestinal complaints Genitourinary: Genitourinary: Reports no additional male genitourinary complaints Musculoskeletal: Musculoskeletal: Reports no additional musculoskeletal complaints Integumentary/Breasts: Skin/Breast: Reports system reviewed and no additional complaints, except as docu Neurologic: Reports system reviewed and no additional complaints, except as documented Psychiatric: Psychiatric: Reports no additional psychiatric complaints Endocrine: Endocrine: Reports no additional endocrine complaints Hematologic/Lymphatic: Hematologic/Lymphatic: Reports no additional hematologic/lymphatic complaints Allergic/Immunologic: Allergic/Immunologic: Reports as per HPI and Denies wheezing PMFSH Past Medical History Medical History Morbid obesity Nasal septal deviation Anxiety Asthma Surgical History Surgical History H/O hernia repair Family History Family History Father Alcoholism Social History Social History Smoking packs per day: 1 Smoking cigarettes per day: 20.0 Years smoked: 2 Smoking pack-years: 2.00 Smoking status: Former smoker Tobacco type: cigarettes and smokeless tobacco Smokeless tobacco user: other Second hand tobacco smoke exposure: Yes (occasionally mom smokes around pa hebert) Smoking end date: 10/14/20 Additional smoking assessment comments: Only uses smokeless tobacco products currently Alcohol intake: never Substance use: current Substance use type: marijuana Other substance usage details: daily Living arrangements: with family Spiritual care concerns: No Exam Const: General: healthy appearing and no acute distress Nutritional Appearance: well nourished Orientation/consciousness: patient oriented x3 Limitations: no limitations HENMT: Head: normal to inspection Face and sinus: normal facial exam and sinuses nontender Mouth: Yes Normal oral and palatal mucosa present, Yes lip normal and Yes moist mucous membranes Throat: posterior oropharynx normal Neck: Neck: normal visual inspection and no lymphadenopathy Resp: Effort & Inspection: normal respiratory effort Auscultation: clear to auscultation bilaterally Cardio: Rate: regular rate Rhythm: regular rhythm Skin: General skin exam: normal color Lesions: no lesions Wounds: no wounds Neuro: General: patient oriented x3 and moves all extremities Speech: normal speech Gait exam (Neuro): Normal gait present Extrem: General: no clubbing, cyanosis or edema and no pedal edema Psych: Mental Status: mental status grossly normal Affect: normal affect Attitude: cooperative Course Course Level of Care: Express Care Visit Vital Signs Vital signs: Vital Signs Temperature 97.4 F L 11/24/24 15:07 Pulse Rate 94 11/24/24 15:07 Respiratory Rate 18 11/24/24 15:07 Blood Pressure 143/91 H 11/24/24 15:07 Pulse Oximetry 99 11/24/24 15:07 Oxygen Delivery Room Air 11/24/24 15:07 Temperature 97.4 F L 11/24/24 15:07 Pulse Rate 94 11/24/24 15:07 Respiratory Rate 18 11/24/24 15:07 Blood Pressure 143/91 H 11/24/24 15:07 Pulse Oximetry 99 11/24/24 15:07 Oxygen Delivery Room Air 11/24/24 15:07 MDM - Asthma MDM Narrative Medical decision making narrative: Spoke with patient about checking in with primary care physician to ensure he gets refills of medication. If he is not happy with his primary care that he should find a new primary care to ensure he does not run out of his medication. The patient was evaluated by myself in the express care. History is obtained from patient who is an independent historian and physical exam was performed. Available medical records were reviewed at this time. Exam findings show no acute concerns or changes; patient is non-toxic appearing and is in no distress. Patient is appropriate for outpatient treatment and follow-up. I have evaluated and discussed social determinants of health with the patient that could potentially impact subsequent diagnosis and treatment plans. Differential diagnosis and treatment plan were discussed with the patient. Patient agrees with discussion and after shared medical decision making agrees with plan of care. All questions were answered to the patient's satisfaction. Differential Diagnosis Differential diagnosis: Likely Acute exacerbation, Acute asthmatic bronchitis, Pulmonary edema dystolic and ARDS Medical Records Attestation: I reviewed the patient's medical records. Discharge Plan Discharge Clinical Impression: Encounter for medication refill Patient Disposition: Home Condition: Stable Instructions: Antibiotic Form, Asthma (ED) Patient Language: Indian Prescriptions: New albuterol sulfate [Ventolin HFA] 90 mcg/actuation HFA aerosol inhaler 2 puff inhalation QID PRN (Reason: shortness of breath or wheezing) Qty: 8.5 0RF budesonide-formoterol [Symbicort] 80-4.5 mcg/actuation HFA aerosol inhaler 2 puff inhalation Q12H Qty: 10.2 0RF No Action albuterol sulfate 90 mcg/actuation HFA aerosol inhaler 2 puff inhalation Q4-6H PRN (Reason: shortness of breath or wheezing) 30 Days Qty: 8.5 0RF budesonide-formoterol [Symbicort] 80-4.5 mcg/actuation HFA aerosol inhaler 1 puff inhalation Q12H Qty: 10.2 0RF (DME) Aerochamber MV Spacer See Rx Instructions .Route Qty: 1 0RF Rx Instructions: As directed Follow-up/Referrals: Carlos Castaneda MD [Primary Care Provider, Family Practice] Time of Disposition: 15:46
== END 2024-11-24 15:50 | disposition home or self-care (01) ==
PROVIDERS: Emergency Provider Nurse Practitioner Family; PCP Emergency Medicine
DX: J45.909 Unspecified asthma, uncomplicated (principal); Z87.891 Personal history of nicotine dependence; E66.01 Morbid (severe) obesity due to excess calories
CPT/HCPCS: 99211; 99213; G0463

== ENCOUNTER 2025-02-10 14:39 | Emergency (ER) | payer OTHER, SELFPAY ==
[2025-02-10 14:50] VITALS: BP 157/85; PULSE 92; RESP 18; TEMP 36.3; O2SAT 98
--- NOTE | 2025-02-10 15:09 | ED_ITS ---
HPI - General Adult General Chief complaint: Asthma Stated complaint: sob Time Seen by Provider: 02/10/25 14:44 Source: patient Mode of arrival: ambulatory Limitations: no limitations History of Present Illness HPI narrative: patient is a 29-year-old male that presents for medication refill of inhalers. Patient states he has had intermittent shortness breath and has been out of inhalers for roughly 2 weeks. Patient has previously seen 09/27 and 11/24 for inhaler refills. Both times patient was given referrals for primary care and instructed to follow-up with primary care. Patient has not found new PCP since he does not like current PCP Tonya. Related Data Allergies Allergy/AdvReac Type Severity Reaction Status Date / Time Sulfa (Sulfonamide Allergy Intermediate Hives Verified 02/10/25 14:44 Antibiotics) Review of Systems Review of Systems: All systems reviewed & are unremarkable except as noted in HPI and below Constitutional: Constitutional: Denies body ache(s), Denies chills, Denies fatigue, Denies fever(s), Denies headache(s), Denies malaise and Denies weakness Eyes: Eyes: Denies blurry vision, Denies irritation and Denies loss of vision ENT: Denies otalgia, Denies headache(s), Denies nasal discharge, Denies sinus pain and Denies sore throat Cardiovascular: Cardiovascular: Denies chest pain, Denies irregular heart rhythm and Denies dyspnea Respiratory: Respiratory: Denies dyspnea Gastrointestinal: Gastrointestinal: Denies abdominal pain, Denies melena, Denies hematochezia, Denies diarrhea, Denies nausea and Denies vomiting Musculoskeletal: Musculoskeletal: Denies back pain, Denies myalgias and Denies arthralgias Integumentary/Breasts: Skin/Breast: Denies pruritus and Denies rash Neurologic: Denies headache(s), Denies loss of vision and Denies weakness Psychiatric: Psychiatric: Reports no additional psychiatric complaints Endocrine: Endocrine: Denies fatigue PMFSH Past Medical History Medical History Morbid obesity Nasal septal deviation Anxiety Asthma Surgical History Surgical History H/O hernia repair Family History Family History Father Alcoholism Social History Social History Smoking packs per day: 1 Smoking cigarettes per day: 20.0 Years smoked: 2 Smoking pack-years: 2.00 Smoking status: Former smoker Tobacco type: cigarettes and smokeless tobacco Smokeless tobacco user: other Second hand tobacco smoke exposure: Yes (occasionally mom smokes around patient) Smoking end date: 10/14/20 Additional smoking assessment comments: Only uses smokeless tobacco products currently Alcohol intake: never Substance use: current Substance use type: marijuana Other substance usage details: daily Living arrangements: with family Spiritual care concerns: No Comments At time of signature, agree with nursing past medical, surgical, social and family history. There is no relevant family history pertinent to the presenting complaint. Exam Const: General: cooperative, healthy appearing, comfortable, no acute distress and well nourished Nutritional Appearance: well nourished Orientation/consciousness: patient oriented x3 Limitations: no limitations HENMT: Head: normal to inspection, normocephalic and atraumatic Ears: hearing grossly normal bilaterally and external ears normal Face/Nose/Sinus: Normal external nose present, normal facial exam and face symmetric Face and sinus: normal facial exam and face symmetric Mouth: Yes lip normal Eyes: General: appearance normal, both eyes and all related structures Alignment and Position: alignment normal and position normal Periorbital: periorbital findings normal Eyelids: eyelids normal Pupils: Equal, round and reactive pupils present EOM: EOMs intact bilaterally Neck: Neck: normal visual inspection, full ROM and supple Chest: Chest palpation & inspection: normal inspection of the chest Resp: Effort & Inspection: normal respiratory effort and able to speak in complete sentences Auscultation: clear to auscultation bilaterally Cardio: Rate: regular rate Rhythm: regular rhythm Heart sounds: S1 normal heart sound present and S2 normal heart sound present GI: Inspection: normal to inspection Skin: General skin exam: normal color and no rashes or lesions noted Neuro: General: patient oriented x3 and moves all extremities Cranial nerves: Yes Equal, round and reactive pupils present Speech: normal speech Gait exam (Neuro): Normal gait present Extrem: General: normal to inspection, full ROM and no edema Psych: Appearance: grossly normal and well kempt Mental Status: mental status grossly normal Speech and movement: Normal speech and movement present Affect: normal affect Attitude: cooperative Thought process: Normal thought process present Course Course Emergency Course: Patient is aware of diagnosis, understands and agrees to treatment plan. Anticipatory guidance given. Patient agrees to follow-up as directed and is aware of reasons to seek care at the emergency department. Portions of this record may have been created with voice recognition software Level of Care: Express Care Visit Vital Signs Vital signs: Vital Signs Temperature 36.3 C L 02/10/25 14:50 Pulse Rate 92 02/10/25 14:50 Respiratory Rate 18 02/10/25 14:50 Blood Pressure 157/85 H 02/10/25 14:50 Pulse Oximetry 98 02/10/25 14:50 Oxygen Delivery Room Air 02/10/25 14:50 Temperature 36.3 C L 02/10/25 14:50 Pulse Rate 92 02/10/25 14:50 Respiratory Rate 18 02/10/25 14:50 Blood Pressure 157/85 H 02/10/25 14:50 Pulse Oximetry 98 02/10/25 14:50 Oxygen Delivery Room Air 02/10/25 14:50 Reviewed Medical Decision Making MDM Narrative Medical decision making narrative: patient has no wheezing and is able to speak in complete sentences. Informed patient we are no longer able to refill medication. Patient was referred to Dr. Jacinto who is taking new patients along with the doctor referral number and outpatient resource sheet. Pt well hydrated appearing, in no respiratory distress, hemodynamically stable. Recommend supportive care. The patient is stable at time of discharge the clinical impression was discussed and the patient was given the opportunity to ask questions, which were addressed as completely as possible given the information available at present. Anticipatory guidance and return to care precautions were discussed and the importance of primary care follow-up was str essed and encouraged. The patient voiced understanding of the plan, indications to return, and the need for follow-up. Exam findings show no acute concerns or changes Patient is appropriate for outpatient treatment and follow-up. Medical Records Medical records reviewed: Yes I reviewed the external patient's medical records. Vital Signs Vital Signs: Vital Signs Temperature 36.3 C L 02/10/25 14:50 Pulse Rate 92 02/10/25 14:50 Respiratory Rate 18 02/10/25 14:50 Blood Pressure 157/85 H 02/10/25 14:50 Pulse Oximetry 98 02/10/25 14:50 Oxygen Delivery Room Air 02/10/25 14:50 Temperature 36.3 C L 02/10/25 14:50 Pulse Rate 92 02/10/25 14:50 Respiratory Rate 18 02/10/25 14:50 Blood Pressure 157/85 H 02/10/25 14:50 Pulse Oximetry 98 02/10/25 14:50 Oxygen Delivery Room Air 02/10/25 14:50 Reviewed Discharge Plan Discharge Clinical Impression: Encounter for medication refill Patient Disposition: Home Condition: Stable Instructions: Asthma (ED) Additional Instructions: 1) Please establish care with a PCP. If you are having a hard time finding a physician please call our [facility] group liaison at [phone]. 2) If you have any worsening of symptoms or any other urgent concerns please go to the ER. Your blood pressure was elevated above 120/80 today at Urgent Care. This puts you above the threshold for follow up visit with a primary care provider. High blood pressure does not usually cause any symptoms, however it may lead to kidney failure, stroke, heart disease just to name a few if untreated . Many people are anxious when seeing a provider or nurse. As a result, you are not diagnosed with hypertension at this time unless your blood pressure is persistently high at two office visits at least one week apart. Some things that can help lower blood pressure are lifestyle modifications, such as light exercise, decreased salt in diet, and weight loss. It is important to follow up with a PCP about this within 1 week. Patient Language: Syrian Prescriptions: No Action albuterol sulfate [Ventolin HFA] 90 mcg/actuation HFA aerosol inhaler 2 puff inhalation QID PRN (Reason: shortness of breath or wheezing) Qty: 8.5 0RF budesonide-formoterol [Symbicort] 80-4.5 mcg/actuation HFA aerosol inhaler 2 puff inhalation Q12H Qty: 10.2 0RF albuterol sulfate 90 mcg/actuation HFA aerosol inhaler 2 puff inhalation Q4-6H PRN (Reason: shortness of breath or wheezing) 30 Days Qty: 8.5 0RF budesonide-formoterol [Symbicort] 80-4.5 mcg/actuation HFA aerosol inhaler 1 puff inhalation Q12H Qty: 10.2 0RF (DME) Aerochamber MV Spacer See Rx Instructions .Route Qty: 1 0RF Rx Instructions: As directed Follow-up/Referrals: Aiden Jacinto DO [Physician, Family Practice] - 3 Days Referral Note: Establish care Time of Disposition: 15:12
== END 2025-02-10 15:19 | disposition home or self-care (01) ==
PROVIDERS: Emergency Provider Nurse Practitioner Family
DX: Z76.0 Encounter for issue of repeat prescription (principal); J45.909 Unspecified asthma, uncomplicated; E66.01 Morbid (severe) obesity due to excess calories; Z68.42 Body mass index [BMI] 45.0-49.9, adult; Z87.891 Personal history of nicotine dependence
CPT/HCPCS: 99211; G0463

== ENCOUNTER 2025-03-08 15:46 | Emergency (ER) | payer OTHER, SELFPAY ==
[2025-03-08 15:54] VITALS: BP 146/120; PULSE 106; RESP 16; TEMP 36.2; O2SAT 97
--- NOTE | 2025-03-08 16:11 | ED.URI ---
HPI - URI/Sore Throat General Chief Complaint: Upper Respiratory Infection Stated Complaint: Sinus Source: patient Mode of arrival: ambulatory Limitations: no limitations History of Present Illness HPI Narrative: This is a 29 y/o male patient that presents to the urgent care with a one-week history of cough, sinus drainage, and wheezing. Patient has been using his inhaler however has not been helping. He states he knows he had a fever yesterday but has not had a fever today. he has been taking Mucinex, he has been taking Tylenol as needed. He has chills but no body aches, nausea, vomiting or diarrhea. No chest pain or distress MD elicited complaint: fever, rhinorrhea and nasal congestion Onset (ago): week(s) (1) Consistency: constant Severity: mild Description of mucous: clear Able to tolerate fluids by mouth: Yes Exacerbating factors: nothing Relieving factors: nothing Context: sick contacts Associated symptoms: denies other symptoms Treatments prior to arrival: cold medicine Related Data Allergies Allergy/AdvReac Type Severity Reaction Status Date / Time Sulfa (Sulfonamide Allergy Intermediate Hives Verified 02/21/25 13:03 Antibiotics) Review of Systems Review of Systems: All systems reviewed & are unremarkable except as noted in HPI and below PMFSH Past Medical History Medical History Morbid obesity Nasal septal deviation Anxiety Asthma Surgical History Surgical History S/P surgery on nasal septum H/O hernia repair Family History Family History Father Alcoholism Social History Social History Smoking packs per day: 1 Smoking cigarettes per day: 20.0 Years smoked: 2 Smoking pack-years: 2.00 Smoking status: Former smoker Tobacco type: cigarettes and smokeless tobacco Smokeless tobacco user: other Second hand tobacco smoke exposure: Yes (occasionally mom smokes around patient) Smoking end date: 10/14/20 Additional smoking assessment comments: Only uses smokeless tobacco products currently Alcohol intake: never Substance use: current Substance use type: marijuana Other substance usage details: daily Living arrangements: with family Spiritual care concerns: No Exam Const: General: ill appearing Nutritional Appearance: well nourished Orientation/consciousness: patient oriented x3 Limitations: no limitations HENMT: Head: normal to inspection Ears: external ears normal Face/Nose/Sinus: Nasal discharge present clear Face and sinus: sinus tenderness maxillary Mouth: Yes Normal oral and palatal mucosa present Teeth and gingiva: dentition normal Throat: posterior oropharynx normal Eyes: Conjunctivae: conjunctivae normal Pupils: Equal, round and reactive pupils present EOM: EOMs intact bilaterally Neck: Neck: normal visual inspection Resp: Auscultation: wheezes scattered wheezes and diminished lung sounds bilateral in the lower lung espinoza Cardio: Rate: tachycardic Rhythm: regular rhythm GI: GI Palp: Yes Soft to palpation Auscultation: normal bowel sounds Back/Spine/Pelvis: Back: no CVA tenderness Skin: General skin exam: normal color Rashes: no rashes Wounds: no wounds Neuro: General: patient oriented x3 Cranial nerves: Yes Nystagmus not present Speech: normal speech Gait exam (Neuro): Normal gait present Extrem: General: normal to inspection and no clubbing, cyanosis or edema Psych: Mental Status: mental status grossly normal Affect: normal affect Attitude: cooperative Course Course Emergency Course: This is a 29 y/o male patient that presents to the urgent care with a one-week history of cough, sinus drainage, and wheezing. Patient has been using his inhaler however has not been helping. He states he knows he had a fever yesterday but has not had a fever today. he has been taking Mucinex, he has been taking Tylenol as needed. He has chills but no body aches, nausea, vomiting or diarrhea. No chest pain or distress vital signs stable COVID, influenza ordered and negative educated on exam findings on exam testing. Educated on need for a nebulizer, edema DuoNeb with improvement. Educated on need for steroids, antibiotic management a follow-up outpatient. Answered all his questions to his satisfaction he is agreeable to this plan. educated to Increase fluids, Rest, Continue with Antibiotic as prescribed. Continue with Prednisone as prescribed. Continue with symptomatic management:-? Cough medication per package instructions -? Tylenol and motrin for fever and pain -? Cough drops for sore throat and cough -? Mucinex for congestion -? Vicks vapor rub -? Cool mist vaporizer Follow up with your primary MD in the next 2-3 days for further exam or Present to the ER for any worrisome sign or symptom. Patient denies any further needs or concerns to be addressed prior to discharge. Level of Care: Express Care Visit Vital Signs Vital signs: Vital Signs Temperature 97.2 F L 03/08/25 15:54 Pulse Rate 106 H 03/08/25 15:54 Respiratory Rate 16 03/08/25 15:54 Blood Pressure 146/120 H 03/08/25 15:54 Pulse Oximetry 97 03/08/25 15:54 Oxygen Delivery Room Air 03/08/25 15:54 Temperature 97.2 F L 03/08/25 15:54 Pulse Rate 106 H 03/08/25 15:54 Respiratory Rate 16 03/08/25 15:54 Blood Pressure 146/120 H 03/08/25 15:54 Pulse Oximetry 97 03/08/25 15:54 Oxygen Delivery Room Air 03/08/25 15:54 MDM MDM Narrative Medical decision making narrative: This is a 29 y/o male patient that presents to the urgent care with a one-week history of cough, sinus drainage, and wheezing. Patient has been using his inhaler however has not been helping. He states he knows he had a fever yesterday but has not had a fever today. he has been taking Mucinex, he has been taking Tylenol as needed. He has chills but no body aches, nausea, vomiting or diarrhea. No chest pain or distress vital signs stable COVID, influenza ordered and negative educated on exam findings on exam testing. Educated on need for a nebulizer, edema DuoNeb with improvement. Educated on need for steroids, antibiotic management a follow-up outpatient. Answered all his questions to his satisfaction he is agreeable to this plan. educated to Increase fluids, Rest, Continue with Antibiotic as prescribed. Continue with Prednisone as prescribed. Continue with symptomatic management:-? Cough medication per package instructions -? Tylenol and motrin for fever and pain -? Cough drops for sore throat and cough -? Mucinex for congestion -? Vicks vapor rub -? Cool mist vaporizer Follow up with your primary MD in the next 2-3 days for further exam or Present to the ER for any worrisome sign or symptom. Patient denies any further needs or concerns to be addressed prior to discharge. Differential Diagnosis Differential Diagnosis: Upper respiratory infection, COVID a, influenza Medical Records I have reviewed the following patient records and this information was taken into consideration when formulating the assessment and plan.: previous labs and previous clinic visits Lab Data MDM Lab Attestation statement: I personally reviewed the patient's lab results. Lab results narrative: COVID-19 negative Influenza a and B negative Discharge Plan Discharge Clinical Impression: Upper respiratory infection Patient Disposition: Home Condition: Stable Instructions: Antibiotic Form, Upper Respiratory Infection (ED) Additional Instructions: Increase fluids Rest Continue with Antibiotic as prescribed Continue with Prednisone as prescribed. Continue with symptomatic management: -? Cough medication per package instructions -? Tylenol and motrin for fever and pain -? Cough drops for sore throat and cough -? Mucinex for congestion -? Vicks vapor rub -? Cool mist vaporizer Follow up with your primary MD in the next 2-3 days for further exam or Present to the ER for any worrisome sign or symptom Patient Language: Croatian Prescriptions: New prednisone 20 mg tablet 40 mg PO BID Qty: 20 0RF azithromycin 250 mg tablet See Rx Instructions .ROUTE .COMPLEX Qty: 6 0RF Rx Instructions: For 250 mg dose pack: take 500 mg today (day 1), then 250 mg for 4 days (days 2-5) No Action (DME) Aerochamber MV Spacer See Rx Instructions .Route Qty: 1 0RF Rx Instructions: As directed clonidine HCl 0.1 mg tablet 0.1 mg PO DAILY Qty: 90 1RF bupropion HCl [Wellbutrin XL] 150 mg tablet extended release 24 hr 150 mg PO QAM Qty: 90 1RF sertraline 50 mg tablet 50 mg PO DAILY Qty: 90 1RF budesonide-formoterol [Symbicort] 80-4.5 mcg/actuation HFA aerosol inhaler 1 puff inhalation Q12H Qty: 10.2 5RF albuterol sulfate [Ventolin HFA] 90 mcg/actuation HFA aerosol inhaler 2 puff inhalation QID PRN (Reason: shortness of breath or wheezing) Qty: 8.5 5RF Follow-up/Referrals: Tami Wilde APRN [Primary Care Provider, Internal Medicine] Time of Disposition: 16:13
[2025-03-08 16:13] LABS: EDCOVIDSCREEN Negative (Negative); EDINFLUASCREEN Negative (Negative); EDINFLUBSCREEN Negative (Negative)
[2025-03-08] MEDS: IPRATROPIUM 0.5 MG/ALBUTEROL SULFATE 2.5 MG (BASE) AMPUL.NEB 3 ML INHALATION (16:20)
== END 2025-03-08 16:33 | disposition home or self-care (01) ==
PROVIDERS: Emergency Provider Nurse Practitioner Family; PCP Nurse Practitioner
DX: J06.9 Acute upper respiratory infection, unspecified (principal); Z20.822 Contact with and (suspected) exposure to COVID-19; F12.90 Cannabis use, unspecified, uncomplicated; F17.290 Nicotine dependence, other tobacco product, uncomplicated; J45.909 Unspecified asthma, uncomplicated; F41.9 Anxiety disorder, unspecified; E66.01 Morbid (severe) obesity due to excess calories; Z68.41 Body mass index [BMI] 40.0-44.9, adult
CPT/HCPCS: 87426; 87804; 99213; G0463